=== PATIENT | female | born 1995 | race Caucasian/White ===

== ENCOUNTER 2017-11-19 13:59 | Emergency (ER) | payer MEDICAID, SELFPAY | END 2017-11-19 14:34 | disposition home or self-care (01) | PROVIDERS: Emergency Provider Emergency Medicine; Family Provider Nurse Practitioner Family; Visit Provider Emergency Medicine | DX: J06.9 Acute upper respiratory infection, unspecified (principal); O21.1 Hyperemesis gravidarum with metabolic disturbance | CPT/HCPCS: 99283 ==

== ENCOUNTER 2017-11-19 21:24 | Emergency (ER) | payer MEDICAID, SELFPAY | END 2017-11-19 23:37 | disposition home or self-care (01) | PROVIDERS: Emergency Provider Emergency Medicine; Family Provider Nurse Practitioner Family; Visit Provider Emergency Medicine | DX: J06.9 Acute upper respiratory infection, unspecified (principal); O23.11 Infections of bladder in pregnancy, first trimester; R07.89 Other chest pain | CPT/HCPCS: 80053; 81001; 83605; 85025; 87040; 87086; 87275; 87276; 96365; 99284 ==

== ENCOUNTER → 2017-11-23 | Outpatient (CLI) | payer MEDICAID, SELFPAY | PROVIDERS: Visit Provider Nurse Practitioner Obstetrics & Gynecology | DX: O26.841 Uterine size-date discrepancy, first trimester (principal) | CPT/HCPCS: 76817 ==

== ENCOUNTER 2017-11-26 12:22 | Emergency (ER) | payer MEDICAID, SELFPAY | END 2017-11-26 13:31 | disposition home or self-care (01) | PROVIDERS: Emergency Provider Nurse Practitioner; Visit Provider Nurse Practitioner | DX: K52.9 Noninfective gastroenteritis and colitis, unspecified (principal) | CPT/HCPCS: 87804; 87880; 96365; 99201 ==

== ENCOUNTER → 2017-12-14 17:50 | Outpatient (REF) | payer MEDICAID, SELFPAY ==
[2017-12-16 20:10] LABS: Neisseria gonorrhoeae, NAA Negative (Negative)
== END ==
LOC: LAB 17:50
PROVIDERS: Visit Provider Nurse Practitioner Obstetrics & Gynecology

== ENCOUNTER 2017-12-26 08:55 | Emergency (ER) | payer MEDICAID, SELFPAY ==
[2017-12-26 09:02] VITALS: BP 135/75; PULSE 84; RESP 18; TEMP 36.6; O2SAT 99; BMI 21.1
[2017-12-26 09:24] LABS: Microscopic, Urine URINE MICROSCOPIC (MICROSCOPIC)
[2017-12-26 09:26] LABS: Appearance,Urine SL CLOUDY (Clear); Bilirubin,Urine Negative (Negative); Blood, Urine TRACE-L (Negative); Color,Urine YELLOW (Yellow); Glucose,Urine (UA) Negative (Negative); Ketones,Urine Negative (Negative); Leukocyte Esterase,Urine Negative (Negative); Nitrate,Urine Negative (Negative); Protein,Urine Negative (Negative); Specific Gravity, Urine >= 1.030 (1.005-1.030); Urobilinogen,Urine 0.2 EU/dl (0.2)
--- NOTE | 2017-12-26 09:28 | PC.NURSE ---
HEART TONES 148BPM AT 0925.
[2017-12-26 09:36] LABS: Bacteria,Urine 3+ /lpf; Mucus,Urine 2+ /lpf; RBC,Urine Occasional #/hpf (0-3); Squamous Epithelial Cell,Urine 20-50 #/hpf (0-5)
--- NOTE | 2017-12-26 09:46 | HMH.EDUROGF ---
ED Disposition Clinical Impression: UTI (urinary tract infection) Qualifiers: Urinary tract infection type: acute cystitis Hematuria presence: without hematuria Qualified Code(s): N30.00 - Acute cystitis without hematuria Qualifiers: Weeks of gestation: 13 weeks Qualified Code(s): Z3A.13 - 13 weeks gestation of Disposition: Home, Self-Care Condition on Discharge: Good Instructions: DI for Urinary Tract Infection (UTI) Additional Instructions: call dr pompa for follow up and culture results Prescriptions: Nitrofurantoin Monohyd/M-Cryst [Macrobid 100 mg Capsule] 100 mg PO BID #10 cap Phenazopyridine HCl [Pyridium 200mg Tablet] 200 mg PO TID #14 tab Referrals: Vashti Walton APRN [Primary Care Provider] - - Critical Care Critical Care Time: No Attestation: On 12/26/17, the high probability of a clinically significant, sudden or life threatening deterioration of the following system(s) required my full and direct attention, intervention and personal management. The time I documented below is in addition to time spent performing reported procedures but includes the following listed in this critical care notation. Medical Decision Making - Medical Records Medical records reviewed: Yes: I reviewed the patient's medical records. Vital Signs: 12/26/17 09:02 Temperature 97.8 F Temperature Source Oral Pulse Rate [Right Brachial] 84 Respiratory Rate 18 Blood Pressure [Right Arm] 135/75 Blood Pressure Mean [Right Arm] 95 Blood Pressure Source [Right Arm] Automatic Cuff Blood Pressure Position [Right Arm] Sitting 02 Sat by Pulse Oximetry 99 Oxygen Delivery Method Room Air - Lab Data Lab results reviewed: Yes: I reviewed the patient's lab results. Lab Results 12/26/17 09:01: Urine Color Yellow, Urine Appearance Sl cloudy, Urine pH 6.0, Ur Specific [place] >= 1.030, Urine Protein Negative, Urine Glucose (UA) Negative, Urine Ketones Negative, Urine Blood Trace-l, Urine Nitrate Negative, Urine Bilirubin Negative, Urine Urobilinogen 0.2, Ur Leukocyte Esterase Negative, Urine RBC Occasional, Urine WBC 3-5, Ur Squamous Epith Cells 20-50, Urine Bacteria 3+, Urine Mucus 2+ Orders (Tests/Meds): ORDERS Category Date Time Status Urine Culture Stat Micro 12/26/17 09:01 Received - Physician Consults Physician Consulted: aletha Reason -: Pt condition - Kai Inquiry Pt receiving controlled substance: No Female Urogenital HPI - General Chief complaint: Back Pain/Injury Stated complaint: 13 weeks pressure back pa Time Seen by Provider: 12/26/17 09:46 Mode of Arrival: Family Vehicle Source of Information: Patient, Medical Record Limitations: No Limitations Description of Symptoms (Recalled from ER Triage Doc. by RN): PT C/O LOWER PELVIC PRESSURE AND BACK PRESSURE THAT STARTED LAST NIGHT. PT IS 13 WEEKS . - History of Present Illness HPI Narrative: pt is 13 weeks with back pain and pelvic pain w/o fever/rash/d/c or bleeding Complaint: pelvic pain Onset (ago): day(s) Severity: moderate : yes - Related Data Home Medications Medication Instructions Recorded Confirmed Pnv95/Iron Fum/Folic Acid 1 each PO DAILY 12/26/17 12/26/17 [ Formula Tablet] Previous Rx's Medication Instructions Recorded Nitrofurantoin Monohyd/M-Cryst 100 mg PO BID #10 cap 12/26/17 [Macrobid 100 mg Capsule] Phenazopyridine HCl [Pyridium 200 mg PO TID #14 tab 12/26/17 200mg Tablet] Allergies Allergy/AdvReac Type Severity Reaction Status Date / Time No Known Allergies Allergy Verified 12/26/17 09:08 [facility] History I have reviewed the patient's past medical history: Yes - *Social History Smoking Status: Never smoker Alcohol Intake: never Substance Use Type: denies use - Psychiatric History Expresses thoughts of harming self/others: None Suicide Plan Description: No Plan ROS Obtained: Yes All systems reviewed
--- NOTE | 2017-12-26 09:49 | ED_ITS ---
ED Disposition Clinical Impression: UTI (urinary tract infection) Qualifiers: Urinary tract infection type: acute cystitis Hematuria presence: without hematuria Qualified Code(s): N30.00 - Acute cystitis without hematuria Qualifiers: Weeks of gestation: 13 weeks Qualified Code(s): Z3A.13 - 13 weeks gestation of Disposition: Home, Self-Care Condition on Discharge: Good Instructions: DI for Urinary Tract Infection (UTI) Additional Instructions: call dr pompa for follow up and culture results Prescriptions: Nitrofurantoin Monohyd/M-Cryst [Macrobid 100 mg Capsule] 100 mg PO BID #10 cap Phenazopyridine HCl [Pyridium 200mg Tablet] 200 mg PO TID #14 tab Referrals: Vashti Walton APRN [Primary Care Provider] - - Critical Care Critical Care Time: No Attestation: On 12/26/17, the high probability of a clinically significant, sudden or life threatening deterioration of the following system(s) required my full and direct attention, intervention and personal management. The time I documented below is in addition to time spent performing reported procedures but includes the following listed in this critical care notation. Medical Decision Making - Medical Records Medical records reviewed: Yes: I reviewed the patient's medical records. Vital Signs: 12/26/17 09:02 Temperature 97.8 F Temperature Source Oral Pulse Rate [Right Brachial] 84 Respiratory Rate 18 Blood Pressure [Right Arm] 135/75 Blood Pressure Mean [Right Arm] 95 Blood Pressure Source [Right Arm] Automatic Cuff Blood Pressure Position [Right Arm] Sitting 02 Sat by Pulse Oximetry 99 Oxygen Delivery Method Room Air - Lab Data Lab results reviewed: Yes: I reviewed the patient's lab results. Lab Results 12/26/17 09:01: Urine Color Yellow, Urine Appearance Sl cloudy, Urine pH 6.0, Ur Specific [place] >= 1.030, Urine Protein Negative, Urine Glucose (UA) Negative, Urine Ketones Negative, Urine Blood Trace-l, Urine Nitrate Negative, Urine Bilirubin Negative, Urine Urobilinogen 0.2, Ur Leukocyte Esterase Negative , Urine RBC Occasional, Urine WBC 3-5, Ur Squamous Epith Cells 20-50, Urine Bacteria 3+, Urine Mucus 2+ Orders (Tests/Meds): ORDERS Category Date Time Status Urine Culture Stat Micro 12/26/17 09:01 Received - Physician Consults Physician Consulted: aletha Reason -: Pt condition - Kai Inquiry Pt receiving controlled substance: No Female Urogenital HPI - General Chief complaint: Back Pain/Injury Stated complaint: 13 weeks pressure back pa Time Seen by Provider: 12/26/17 09:46 Mode of Arrival: Family Vehicle Source of Information: Patient, Medical Record Limitations: No Limitations Description of Symptoms (Recalled from ER Triage Doc. by RN): PT C/O LOWER PELVIC PRESSURE AND BACK PRESSURE THAT STARTED LAST NIGHT. PT IS 13 WEEKS . - History of Present Illness HPI Narrative: pt is 13 weeks with back pain and pelvic pain w/o fever/rash/d/c or bleeding Complaint: pelvic pain Onset (ago): day(s) Severity: moderate : yes - Related Data Home Medications Medication Instructions Recorded Confirmed Pnv95/Iron Fum/Folic Acid 1 each PO DAILY 12/26/17 12/26/17 [ Formula Tablet] Previous Rx's Medication Instructions Recorded
--- NOTE | 2017-12-26 09:49 | PC.NURSE ---
0949- ON PHONE WITH .
[2017-12-26 10:08] VITALS: BP 132/68; PULSE 77; RESP 18; O2SAT 100
== END 2017-12-26 10:10 | disposition home or self-care (01) ==
PROVIDERS: Emergency Provider Emergency Medicine; Family Provider Nurse Practitioner Family; PCP Nurse Practitioner Family
DX: O23.11 Infections of bladder in pregnancy, first trimester (principal); Z3A.13 13 weeks gestation of pregnancy
CPT/HCPCS: 81001; 87086; 99283

== ENCOUNTER 2018-02-10 08:39 | Emergency (ER) | payer MEDICAID, SELFPAY ==
[2018-02-10 08:41] VITALS: BP 124/76; PULSE 75; RESP 18; TEMP 36.4; O2SAT 99; BMI 21.7
[2018-02-10 08:59] LABS: Microscopic, Urine URINE MICROSCOPIC (MICROSCOPIC)
[2018-02-10 09:08] LABS: Appearance,Urine CLEAR (Clear); Bilirubin,Urine Negative (Negative); Blood, Urine TRACE-L (Negative); Color,Urine YELLOW (Yellow); Glucose,Urine (UA) Negative (Negative); Ketones,Urine Negative (Negative); Leukocyte Esterase,Urine Negative (Negative); Nitrate,Urine Negative (Negative); PH,Urine 6.5 (5.0-8.5); Protein,Urine Negative (Negative); Urobilinogen,Urine 0.2 EU/dl (0.2)
--- NOTE | 2018-02-10 09:19 | HMH.EDGENADL ---
ED Disposition Clinical Impression: Round ligament pain Disposition: Home, Self-Care Condition on Discharge: Good Instructions: How to Measure Pain-Adult Referrals: Kleber Boyer MD [Primary Care Provider] - Time of Disposition: 12:27 (discussed with Dr Rojas and discussed US results, feels likely round ligament) - Critical Care Critical Care Time: No Attestation: On 02/10/18, the high probability of a clinically significant, sudden or life threatening deterioration of the following system(s) required my full and direct attention, intervention and personal management. The time I documented below is in addition to time spent performing reported procedures but includes the following listed in this critical care notation. Medical Decision Making - Medical Records Medical records reviewed: Yes: I reviewed the patient's medical records. - Kai Inquiry Pt receiving controlled substance: No Kai was queried for this patient: No Vital Signs: 02/10/18 08:41 Temperature 97.5 F L Temperature Source Oral Pulse Rate [Right Brachial] 75 Respiratory Rate 18 Blood Pressure [Right Arm] 124/76 Blood Pressure Mean [Right Arm] 92 Blood Pressure Source [Right Arm] Automatic Cuff Blood Pressure Position [Right Arm] Sitting 02 Sat by Pulse Oximetry 99 Oxygen Delivery Method Room Air - Lab Data Lab results reviewed: Yes: I reviewed the patient's lab results. Lab Results 02/10/18 08:50: Urine Color Yellow, Urine Appearance Clear, Urine pH 6.5, Ur Specific [place] 1.020, Urine Protein Negative, Urine Glucose (UA) Negative, Urine Ketones Negative, Urine Blood Trace-l, Urine Nitrate Negative, Urine Bilirubin Negative, Urine Urobilinogen 0.2, Ur Leukocyte Esterase Negative, Urine RBC 3-5, Urine WBC 5-10, Ur Squamous Epith Cells 5-10, Urine Bacteria 1+ - US Data US Images: Abdomen ED US Reviewed: Yes: I discussed the US results w/the radiologist Preliminary Findings: Normal/NAD (mild hydronephrosis) General Adult HPI - General Chief complaint: PAIN Stated complaint: approx 19 weeks abd pain Time Seen by Provider: 02/10/18 08:50 Mode of Arrival: Ambulatory (6) Limitations: No Limitations Description of Symptoms (Recalled from ER Triage Doc. by RN): 19 weeks . presents to ed with c/o lower abdominal pain since 0330 but mostly on left side with some back pain. hx left ovarian cyst. Denies urinary problems or vaginal bleeding/discharge - History of Present Illness Onset (ago): hour(s) (6) Location: abdomen Radiation: non-radiation Severity: moderate Quality: aching Consistency: intermittent Relieving factors: immobilization Exacerbating factors: movement Associated symptoms: denies other symptoms - Related Data Home Medications Medication Instructions Recorded Confirmed Pnv95/Iron Fum/Folic Acid 1 each PO DAILY 12/26/17 02/10/18 [ Formula Tablet] Allergies Allergy/AdvReac Type Severity Reaction Status Date / Time No Known Allergies Allergy Verified 01/18/18 15:44 [facility] History I have reviewed the patient's past medical history: Yes Medical History: Denies:: Cancer, Diabetes Mellitus Type 1, Diabetes Mellitus Type 2, MRSA Amputation: No Fractures: No - Social History Educational Level: Completed High School Smoking Status: Never smoker Alcohol Intake: never Substance Use Type: denies use - Psychiatric History Expresses thoughts of harming self/others: None Suicide Plan Description: No Plan Family Hx:: No significant family history ROS Obtained: Yes All systems reviewed & no additional complaints - Genitourinary Male Genitourinary: Reports other (lower pelvic pain pog1 l greater than right) Female Genitourinary: Reports pelvic pain (left side pelvic pain) Physical Exam - General General appearance: alert, in no apparent distress - Head Head exam: atraumatic, normocephalic - Eye Eye exam: Present: normal appearance, PERRL, EOMI - ENT ENT e
--- NOTE | 2018-02-10 09:20 | US_ITS ---
US OB >= 14 weeks Fetus COMPARISON: Transvaginal ultrasound of 11/23/2017 HISTORY: Left lower quadrant pain, no spotting TECHNIQUE: Transabdominal imaging FINDINGS: The cervix is 4.0 cm in length and closed. The fetus is in breech presentation. The heart rate is 1 30 bpm. The placenta is anterior. There is a normal amount of amnionic fluid. The BPD is 4.47 cm equaling 19 weeks and 4 days and occipital frontal diameter is 5.83 cm equaling 20 weeks 1 day. The head circumference is 16.32 cm equaling 19 weeks 1 day and the abdominal circumference is 14.2 cm equaling 19 weeks 4 days. The femur length is 3.04 centers equaling 19 weeks 3 days. Both ovaries appear normal. There is mild hydronephrotic change left kidney with moderate hydronephrotic change right kidney. IMPRESSION: Breach fetus estimated age 19 weeks and 3 days
--- NOTE | 2018-02-10 09:23 | ED_ITS ---
ED Disposition Clinical Impression: Round ligament pain Disposition: Home, Self-Care Condition on Discharge: Good Instructions: How to Measure Pain-Adult Referrals: Kleber Boyer MD [Primary Care Provider] - Time of Disposition: 12:27 (discussed with Dr oRjas and discussed US results, feels likely round ligament) - Critical Care Critical Care Time: No Attestation: On 02/10/18, the high probability of a clinically significant, sudden or life threatening deterioration of the following system(s) required my full and direct attention, intervention and personal management. The time I documented below is in addition to time spent performing reported procedures but includes the following listed in this critical care notation. Medical Decision Making - Medical Records Medical records reviewed: Yes: I reviewed the patient's medical records. - Kai Inquiry Pt receiving controlled substance: No Kai was queried for this patient: No Vital Signs: 02/10/18 08:41 Temperature 97.5 F L Temperature Source Oral Pulse Rate [Right Brachial] 75 Respiratory Rate 18 Blood Pressure [Right Arm] 124/76 Blood Pressure Mean [Right Arm] 92 Blood Pressure Source [Right Arm] Automatic Cuff Blood Pressure Position [Right Arm] Sitting 02 Sat by Pulse Oximetry 99 Oxygen Delivery Method Room Air - Lab Data Lab results reviewed: Yes: I reviewed the patient's lab results. Lab Results 02/10/18 08:50: Urine Color Yellow, Urine Appearance Clear, Urine pH 6.5, Ur Specific [place] 1.020, Urine Protein Negative, Urine Glucose (UA) Negative, Urine Ketones Negative, Urine Blood Trace-l, Urine Nitrate Negative, Urine Bilirubin Negative, Urine Urobilinogen 0.2, Ur Leukocyte Esterase Negative, Urine RBC 3-5, Urine WBC 5-10, Ur Squamous Epith Cells 5-10, Urine Bacteria 1+ - US Data US Images: Abdomen ED US Reviewed: Yes: I discussed the US results w/the radiologist Preliminary Findings: Normal/NAD (mild hydronephrosis) General Adult HPI - General Chief complaint: PAIN Stated complaint: approx 19 weeks abd pain Time Seen by Provider: 02/10/18 08:50 Mode of Arrival: Ambulatory (6) Limitations: No Limitations Description of Symptoms (Recalled from ER Triage Doc. by RN): 19 weeks . presents to ed with c/o lower abdominal pain since 0330 but mostly on left side with some back pain. hx left ovarian cyst. Denies urinary problems or vaginal bleeding/discharge - History of Present Illness Onset (ago): hour(s) (6) Location: abdomen Radiation: non-radiation Severity: moderate Quality: aching Consistency: intermittent Relieving factors: immobilization Exacerbating factors: movement Associated symptoms: denies other symptoms - Related Data Home Medications Medication Instructions Recorded Confirmed Pnv95/Iron Fum/Folic Acid 1 each PO DAILY 12/26/17 02/10/18 [ Formula Tablet] Allergies Allergy/AdvReac Type Severity Reaction Status Date / Time No Known Allergies Allergy Verified 01/18/18 15:44 [facility] History I have reviewed the patient's past medical history: Yes Medical History: Denies:: Cancer, Diabetes Mellitus Type 1, Diabetes Mellitus Type 2, MRSA Amputation: No Fractures: No - Social History Educational Level: Completed High School Smoking Status: Never smoker Alcohol Intake: never Substanc
[2018-02-10 09:30] LABS: Bacteria,Urine 1+ /lpf
--- NOTE | 2018-02-10 09:42 | PC.NURSE ---
HEART TONES 155
--- NOTE | 2018-02-10 11:56 | PC.NURSE ---
attempted to call dr henley office at this time. no answer. will try again later.
[2018-02-10 12:45] VITALS: BP 114/61; PULSE 76; RESP 16; TEMP 36.6; O2SAT 100
== END 2018-02-10 12:49 | disposition home or self-care (01) ==
PROVIDERS: Emergency Provider Family Medicine; Family Provider Nurse Practitioner Family; PCP Nurse Practitioner Obstetrics & Gynecology
DX: R10.2 Pelvic and perineal pain (principal); O26.892 Other specified pregnancy related conditions, second trimester; Z3A.19 19 weeks gestation of pregnancy
CPT/HCPCS: 76805; 81001; 99282

== ENCOUNTER → 2018-02-15 14:31 | Outpatient (CLI) | payer MEDICAID, SELFPAY ==
--- NOTE | 2018-02-15 14:47 | US_ITS ---
US OB /maternal detail: INDICATION: ITS.REASON: 20 wk+ Anatomy Scan Complete ORDERING PHYSICIAN: Kleber Boyer MD PATIENT AGE: 22 years TECHNIQUE: ultrasound transabdominal scanning. COMPARISON: No previous relevant studies. FINDINGS: Single viable intrauterine gestation. breech position. Placenta: anterior placenta grade 1. There is adequate amount fluid. The cervix appears satisfactory. Closed and measuring 4 cm in length. Complete survey performed and was unremarkable on the submitted images as in PACS. No discrete anomalies identified on survey imaging by technologist. Active fetus. Three-vessel cord with satisfactory umbilical cord insertion. 4- chamber heart noted. Survey of brain & ventricles. Face and neck survey unremarkable. Diaphragm and chest views unremarkable. Abdomen: Both kidneys noted and unremarkable. Stomach noted and satisfactory. Spine: Survey of the spine satisfactory with no anomalies identified nor imaged. Both arms and legs noted. Amniotic Fluid: Adequate. Maternal adnexa: No significant findings. Measurements: Average ultrasound age 20w3d. Gestational Age 20w2d. Estimated due date by ultrasound age 0807/02/2018. Estimated weight 351 grams. This is 52nd percentile based on last menstrual period BPD = 21w0d OFD = 20w1d HC = 19w5d AC = 20w5d FL = 20w2d Heart Rate = 133 Cerebellum = 22w1d Humerus = 21w6d HC/AC is 1.10 (1.09-1.26). CI is 84% (70-86%). FL/BPD is 66%. FL/AC is 21%. IMPRESSION: There is a single live fetus which is in breech presentation with average ultrasound age of 20 weeks and 3 days. Fetus is active with no obvious anomalies. The placenta is anterior with no evidence of previa. Please see above for detail
== END ==
PROVIDERS: Family Provider Nurse Practitioner Family; PCP Nurse Practitioner Obstetrics & Gynecology; Visit Provider Nurse Practitioner Obstetrics & Gynecology
DX: Z36.0 Encounter for antenatal screening for chromosomal anomalies (principal)
CPT/HCPCS: 76811

== ENCOUNTER 2018-03-31 08:30 | Outpatient (CLI) | payer MEDICAID, SELFPAY ==
[2018-03-31 10:10] VITALS: BP 124/75; PULSE 77; RESP 18
== END 2018-03-31 10:25 | disposition home or self-care (01) ==
LOC: LAB 08:30
PROVIDERS: Visit Provider Nurse Practitioner Obstetrics & Gynecology
DX: Z34.90 Encounter for supervision of normal pregnancy, unspecified, unspecified trimester (principal)
CPT/HCPCS: 36415; 96372; J2790

== ENCOUNTER 2018-04-25 17:19 | Outpatient (CLI) | payer MEDICAID, SELFPAY ==
[2018-04-25 17:34] VITALS: BMI 22.7
[2018-04-25 17:45] VITALS: BP 147/85; PULSE 90; RESP 18; TEMP 36.5; O2SAT 99; BMI 23.3
[2018-04-25 17:53] LABS: Microscopic, Urine URINE MICROSCOPIC (MICROSCOPIC)
[2018-04-25 17:54] LABS: Appearance,Urine SL CLOUDY (Clear); Bilirubin,Urine Negative (Negative); Blood, Urine TRACE-L (Negative); Color,Urine YELLOW (Yellow); Glucose,Urine (UA) Negative (Negative); Ketones,Urine Negative (Negative); Leukocyte Esterase,Urine 2+ (Negative); Nitrate,Urine Negative (Negative); PH,Urine 6.5 (5.0-8.5); Protein,Urine Negative (Negative); Specific Gravity, Urine 1.015 (1.005-1.030); Urobilinogen,Urine 0.2 EU/dl (0.2)
[2018-04-25 18:18] LABS: Amorphous Sediment,Urine 2+ /lpf; Bacteria,Urine 2+ /lpf; RBC,Urine Occasional #/hpf (0-3); Squamous Epithelial Cell,Urine TNTC #/hpf (0-5)
== END 2018-04-25 19:16 | disposition home or self-care (01) ==
LOC: OBOUT 17:23 → OB 17:24
PROVIDERS: PCP Nurse Practitioner Obstetrics & Gynecology; Visit Provider Obstetrics & Gynecology
DX: O47.03 False labor before 37 completed weeks of gestation, third trimester (principal); Z3A.30 30 weeks gestation of pregnancy
CPT/HCPCS: 59025; 81001; 87086

== ENCOUNTER 2018-04-27 16:36 | Outpatient (CLI) | payer MEDICAID, SELFPAY ==
[2018-04-27 16:54] VITALS: BMI 23.1
[2018-04-27 16:55] VITALS: BP 141/81; PULSE 89; RESP 18; TEMP 37; O2SAT 99; BMI 23.1
[2018-04-27 17:19] LABS: Microscopic, Urine URINE MICROSCOPIC (MICROSCOPIC)
[2018-04-27 17:20] LABS: Appearance,Urine CLEAR (Clear); Bilirubin,Urine Negative (Negative); Blood, Urine Negative (Negative); Color,Urine YELLOW (Yellow); Glucose,Urine (UA) Negative (Negative); Ketones,Urine Negative (Negative); Leukocyte Esterase,Urine TRACE (Negative); Nitrate,Urine Negative (Negative); Protein,Urine Negative (Negative); Specific Gravity, Urine 1.015 (1.005-1.030); Urobilinogen,Urine 0.2 EU/dl (0.2)
[2018-04-27 17:32] LABS: Bacteria,Urine 1+ /lpf
== END 2018-04-27 18:24 | disposition home or self-care (01) ==
LOC: OBOUT 16:39 → OB 16:40
PROVIDERS: Obstetrics & Gynecology; PCP Nurse Practitioner Obstetrics & Gynecology; Visit Provider Obstetrics & Gynecology
DX: O26.93 Pregnancy related conditions, unspecified, third trimester (principal); Z3A.30 30 weeks gestation of pregnancy; R10.9 Unspecified abdominal pain; M54.5 Low back pain
CPT/HCPCS: 59025; 81001

== ENCOUNTER 2018-05-09 16:52 | Outpatient (CLI) | payer MEDICAID, SELFPAY ==
[2018-05-09 17:02] VITALS: BP 123/70; PULSE 64; RESP 18; TEMP 36.8; O2SAT 100; BMI 22.8
== END 2018-05-09 17:18 | disposition home or self-care (01) ==
LOC: OBOUT 16:54 → OB 16:54
PROVIDERS: PCP Nurse Practitioner Obstetrics & Gynecology; Visit Provider Nurse Practitioner Obstetrics & Gynecology
DX: O26.93 Pregnancy related conditions, unspecified, third trimester (principal); Z3A.32 32 weeks gestation of pregnancy
CPT/HCPCS: 96372

== ENCOUNTER 2018-05-10 16:31 | Outpatient (CLI) | payer MEDICAID, SELFPAY ==
[2018-05-10 16:44] VITALS: BP 141/94; PULSE 88; RESP 20; TEMP 36.8; O2SAT 99; BMI 22.8
== END 2018-05-10 17:07 | disposition home or self-care (01) ==
LOC: OBOUT 16:33 → OB 16:33
PROVIDERS: PCP Nurse Practitioner Family; Visit Provider Nurse Practitioner Obstetrics & Gynecology
DX: O26.93 Pregnancy related conditions, unspecified, third trimester (principal); Z3A.32 32 weeks gestation of pregnancy
CPT/HCPCS: 96372

== ENCOUNTER → 2018-05-17 08:20 | Outpatient (CLI) | payer MEDICAID, SELFPAY ==
--- NOTE | 2018-05-17 08:23 | US_ITS ---
US OB biophysical profile, US SD Ratio umbilcal artery: Indication: Small for gestational age ITS.REASON: US OB- SGA ORDERING PHYSICIAN: Kleber Boyer MD PATIENT AGE: 22 years COMPARISON: 02/15/2018 FINDINGS: There is a single live fetus present in cephalic presentation. heart and breathing motion noted. movement present The following parameters are obtained: Average ultrasound age is 33w6d. Estimated due date by ultrasound is 06/29/2018. Estimated weight is 2188 g. This is 45 percentile based on established due date. BPD: 33w5d OFD: 35w0d HC: 34w0d AC: 32w4d FL: 34w5d heart rate: 140 bpm. HC/AC: 1.07 (0.96-1.11) Cephalic index: 77% (70-86%) FL/BPD: 80% (71-87%) FL/AC: 24% (20-24%) Amniotic fluid index: 11.56 cm Qualitative AFV: 2 breathing movements: 2 Gross body movements: Note Tone: 2 Biophysical profile score: 8/8 Doppler evaluation of the umbilical artery: SD ratio: 2.6 Resistive index: 0.61 No obvious anomalies evident. Placenta: Anterior and grade 2. No previa Cervix: Appears closed and measures Measurement IMPRESSION: There is a single live intrauterine gestation which is in cephalic presentation. Average ultrasound age is 33 weeks and 6 days. Estimated due date by ultrasound is 06/29/2018. Estimated weight is 2188 g which is 45 percentile based on established due date of 07/03/2018. Biophysical profile 8 of 8 with amniotic fluid index of 12 cm and unremarkable Doppler evaluation of the umbilical artery
== END ==
PROVIDERS: Family Provider Nurse Practitioner Family; PCP Nurse Practitioner Family; Visit Provider Nurse Practitioner Obstetrics & Gynecology
DX: Z34.90 Encounter for supervision of normal pregnancy, unspecified, unspecified trimester (principal); O36.5131 Maternal care for known or suspected placental insufficiency, third trimester, fetus 1
CPT/HCPCS: 76819; 76820

== ENCOUNTER 2018-05-18 06:44 | Outpatient (CLI) | payer MEDICAID, SELFPAY ==
[2018-05-18 07:02] VITALS: BMI 23.0
[2018-05-18 07:23] VITALS: BP 134/73; PULSE 93; RESP 16; TEMP 36.7; O2SAT 98; BMI 23.0
[2018-05-18 07:28] LABS: Microscopic, Urine URINE MICROSCOPIC (MICROSCOPIC)
[2018-05-18 07:40] LABS: Appearance,Urine CLOUDY (Clear); Bilirubin,Urine Negative (Negative); Blood, Urine 3+ (Negative); Color,Urine AMBER (Yellow); Glucose,Urine (UA) Negative (Negative); Ketones,Urine Negative (Negative); Leukocyte Esterase,Urine Negative (Negative); Nitrate,Urine Negative (Negative); Protein,Urine 1+ (Negative); Specific Gravity, Urine 1.015 (1.005-1.030); Urobilinogen,Urine 0.2 EU/dl (0.2)
[2018-05-18 07:52] LABS: Bacteria,Urine 1+ /lpf; RBC,Urine TNTC #/hpf (0-3); Squamous Epithelial Cell,Urine Occasional #/hpf (0-5); WBC,Urine Occasional #/hpf (0-3)
[2018-05-18 07:55] LABS: Fetal Membrane Rupture (Rapid) Negative (Negative)
[2018-05-18 07:59] LABS: Fetal Fibronectin (Rapid) Negative (Negative)
--- NOTE | 2018-05-18 08:34 | HMH.ACPN2 ---
Internal Medicine - PN: Subj *Date: 05/18/18 *Time: 08:34 Interval history: She is a 22-year-old 1 para 0 at 30 weeks gestational. Age. She complains of low back pain as well as occasional contraction. As result that she came in for monitoring. Exam Vital signs and Labs for Last 24 Hours: Temp Pulse Resp BP Pulse Ox 98.0 F 93 H 16 134/73 98 05/18/18 07:23 05/18/18 07:23 05/18/18 07:23 05/18/18 07:23 05/18/18 07:23 Laboratory Results - last 24 hr 05/18/18 06:58: Urine Color Alicia, Urine Appearance Cloudy, Urine pH 7.0, Ur Specific [place] 1.015, Urine Protein 1+, Urine Glucose (UA) Negative, Urine Ketones Negative, Urine Blood 3+, Urine Nitrate Negative, Urine Bilirubin Negative, Urine Urobilinogen 0.2, Ur Leukocyte Esterase Negative, Urine RBC Tntc, Urine WBC Occasional, Ur Squamous Epith Cells Occasional, Urine Bacteria 1+ 05/18/18 07:15: Membrane Rupture Negative, Fibronectin Negative I & O for Last 24 hours: Intake & Output 05/15/18 05/16/18 05/17/18 05/18/18 11:59 11:59 11:59 11:59 Weight 147 lb - Constitutional no acute distress Assessment and Plan (1) Low back pain during in third trimester Current visit: Yes Status: Acute Category: Medical Code(s): O26.893 - Other specified related conditions, third trimester; M54.5 - Low back pain (2) labor in third trimester without delivery Current visit: No Status: Acute Category: Medical Code(s): O60.03 - labor without delivery, third trimester - Assessment and plan all Dx Assessment and Plan for all problems:: She is having an occasional contraction but her cervix has not changed. Her cervix remains 1 cm thick and the presented part is high. Nonstress test is reactive. She has an occasional contraction is mild. She complains of low back pain. We have given her a shot of Brethine and will give her a liter of fluid. She may benefit from physical therapy for her back. She has an appointment with me this morning at 9:00 but we will reschedule that for next week. He will be discharged home.
[2018-05-18 10:15] VITALS: BP 130/68; PULSE 107; RESP 18; O2SAT 100
== END 2018-05-18 10:30 | disposition home or self-care (01) ==
LOC: OBOUT 06:45 → OB 06:45
PROVIDERS: PCP Nurse Practitioner Family; Visit Provider Nurse Practitioner Obstetrics & Gynecology
DX: O26.893 Other specified pregnancy related conditions, third trimester (principal); Z3A.33 33 weeks gestation of pregnancy; R10.2 Pelvic and perineal pain; M54.5 Low back pain
CPT/HCPCS: 59025; 81001; 82731; 84112; 96360; 96372

== ENCOUNTER 2018-05-18 16:33 | Outpatient (CLI) | payer MEDICAID, SELFPAY ==
[2018-05-18 16:48] VITALS: BP 153/93; PULSE 95; RESP 18; TEMP 36.8; O2SAT 100; BMI 23.6
[2018-05-18 18:17] LABS: Basophils % 0.3 % (0.1-2.0); Eosinophils # 0.1 K/mm3 (0.0-0.4); Eosinophils % 0.4 % (0.1-12.0); Hematocrit 33.8 % (37.0-47.0); Hemoglobin 11.1 g/dL (12.2-16.2); Lymphocytes # 1.9 K/mm3 (0.7-4.5); Lymphocytes % 14.8 K/mm3 (10-50); Mean Corpuscular HGB Conc 32.7 g/dL (31.8-35.4); Mean Corpuscular Hemoglobin 28.3 pg (27.0-31.2); Mean Corpuscular Volume 86.5 fl (81-99); Mean Platelet Volume 7.7 fl (7.4-10.4); Monocytes # 0.4 K/mm3 (0.1-1.0); Monocytes % 3.4 % (1.7-9.3); Neutrophils # 10.2 K/mm3 (1.8-7.8); Neutrophils % 81.1 % (37.0-80.0); Platelet Count 222 K/mm3 (142-424); Red Cell Distribution Width 13.6 % (11.5-17.5); White Blood Count 12.6 K/mm3 (4.5-13.0)
[2018-05-18 18:20] LABS: Anion Gap 12.3 mEq/L (5-15); Blood Urea Nitrogen 7 mg/dL (7-18); Calcium 8.8 mg/dL (8.5-10.1); Carbon Dioxide 23 mmol/L (21.0-32.0); Chloride 104 mmol/L (98-107); Creatinine Clearance Estimated 171 mL/min (0-300); Creatinine,Serum 0.55 mg/dL (0.55-1.02); Estimated Glomerular Filt Rate 141 ml/min (>60); GFR (African American) 171 ML/MIN (>60); Glucose 100 mg/dL (74-106); Potassium 3.3 mmoL/L (3.5-5.1); Sodium 136 mmol/L (136-145)
[2018-05-18 19:32] LABS: Microscopic, Urine URINE MICROSCOPIC (MICROSCOPIC)
[2018-05-18 19:34] LABS: Appearance,Urine CLEAR (Clear); Bilirubin,Urine Negative (Negative); Blood, Urine 3+ (Negative); Color,Urine YELLOW (Yellow); Glucose,Urine (UA) Negative (Negative); Ketones,Urine Negative (Negative); Leukocyte Esterase,Urine Negative (Negative); Nitrate,Urine Negative (Negative); Protein,Urine Negative (Negative); Specific Gravity, Urine 1.015 (1.005-1.030); Urobilinogen,Urine 0.2 EU/dl (0.2)
[2018-05-18 19:55] LABS: Bacteria,Urine 1+ /lpf; RBC,Urine 20-50 #/hpf (0-3)
== END 2018-05-18 20:55 | disposition home or self-care (01) ==
LOC: OBOUT 16:35 → OB 16:36
PROVIDERS: PCP Nurse Practitioner Obstetrics & Gynecology; Visit Provider Obstetrics & Gynecology
DX: O26.93 Pregnancy related conditions, unspecified, third trimester (principal); Z3A.33 33 weeks gestation of pregnancy; R10.30 Lower abdominal pain, unspecified
CPT/HCPCS: 59025; 80048; 81001; 85025; 96360

== ENCOUNTER 2018-05-21 05:54 | Outpatient (CLI) | payer MEDICAID, SELFPAY ==
[2018-05-21 06:05] VITALS: BMI 23.3
[2018-05-21 06:15] VITALS: BP 146/86; PULSE 115; RESP 18; TEMP 37.2; O2SAT 98; BMI 23.5
[2018-05-21 06:15] LABS: Microscopic, Urine URINE MICROSCOPIC (MICROSCOPIC)
[2018-05-21 06:16] LABS: Appearance,Urine SL CLOUDY (Clear); Bilirubin,Urine Negative (Negative); Blood, Urine 3+ (Negative); Color,Urine YELLOW (Yellow); Glucose,Urine (UA) Negative (Negative); Ketones,Urine Negative (Negative); Leukocyte Esterase,Urine 2+ (Negative); Nitrate,Urine Negative (Negative); Protein,Urine TRACE (Negative); Urobilinogen,Urine 0.2 EU/dl (0.2)
[2018-05-21 06:18] LABS: RBC,Urine 20-50 #/hpf (0-3); WBC,Urine 50-100 #/hpf (0-3)
== END 2018-05-21 07:25 | disposition home or self-care (01) ==
LOC: OBOUT 05:58 → OB 05:59
PROVIDERS: PCP Nurse Practitioner Family; Referring Provider Nurse Practitioner Obstetrics & Gynecology; Visit Provider Obstetrics & Gynecology
DX: O26.93 Pregnancy related conditions, unspecified, third trimester (principal); Z3A.33 33 weeks gestation of pregnancy; M54.5 Low back pain; R11.2 Nausea with vomiting, unspecified
CPT/HCPCS: 59025; 81001; 87086

== ENCOUNTER → 2018-05-25 13:23 | Outpatient (CLI) | payer MEDICAID, SELFPAY ==
--- NOTE | 2018-05-25 13:52 | US_ITS ---
US kidney retroperitoneal comp HISTORY: ITS.REASON: RT FLANK PAIN, R/O STONES ORDERING PHYSICIAN: Kleber Boyer MD PATIENT AGE: 23 years Comparison: None FINDINGS: RIGHT KIDNEY:There is moderate right hydronephrosis. The ureters not demonstrated. 13.8cm by 6.41cm by 10.69cm LEFT KIDNEY:Mild/moderate left hydronephrosis 12.73 cm by 6.46cm by 6.52cm OTHER FINDINGS: No other pertinent findings IMPRESSION: Bilateral hydronephrosis right more extensive than left
== END ==
PROVIDERS: Family Provider Nurse Practitioner Family; PCP Nurse Practitioner Family; Visit Provider Nurse Practitioner Obstetrics & Gynecology
DX: R10.9 Unspecified abdominal pain (principal)
CPT/HCPCS: 76770

== ENCOUNTER → 2018-05-29 19:18 | Outpatient (REF) | payer MEDICAID, SELFPAY | LOC: LAB 19:18 | PROVIDERS: Visit Provider Obstetrics & Gynecology | DX: Z34.90 Encounter for supervision of normal pregnancy, unspecified, unspecified trimester (principal) | CPT/HCPCS: 86403 ==

== ENCOUNTER 2018-05-31 22:47 | Outpatient (CLI) | payer MEDICAID, SELFPAY ==
[2018-05-31 23:01] VITALS: BMI 23.1
[2018-05-31 23:13] VITALS: BP 144/77; PULSE 111; RESP 18; TEMP 36.6; O2SAT 98; BMI 23.1
[2018-05-31 23:14] LABS: Microscopic, Urine URINE MICROSCOPIC (MICROSCOPIC)
[2018-05-31 23:17] LABS: Appearance,Urine CLEAR (Clear); Bilirubin,Urine Negative (Negative); Blood, Urine 1+ (Negative); Color,Urine YELLOW (Yellow); Glucose,Urine (UA) Negative (Negative); Ketones,Urine Negative (Negative); Leukocyte Esterase,Urine 3+ (Negative); Nitrate,Urine Negative (Negative); Protein,Urine TRACE (Negative); Specific Gravity, Urine 1.015 (1.005-1.030)
[2018-05-31 23:26] LABS: Bacteria,Urine 1+ /lpf; WBC,Urine 50-100 #/hpf (0-3)
== END 2018-06-01 02:02 | disposition home or self-care (01) ==
LOC: OBOUT 22:50 → OB 22:51
PROVIDERS: PCP Nurse Practitioner Obstetrics & Gynecology; Visit Provider Obstetrics & Gynecology
DX: O26.893 Other specified pregnancy related conditions, third trimester (principal); Z3A.35 35 weeks gestation of pregnancy; R10.9 Unspecified abdominal pain
CPT/HCPCS: 59025; 81001; 87086; 96360; 96367; 96372

== ENCOUNTER 2018-06-20 02:48 | Inpatient (IN) ==
[2018-06-20 05:11] LABS: Basophils # 0.1 K/mm3 (0-0.2); Basophils % 0.4 % (0.1-2.0); Eosinophils # 0.2 K/mm3 (0.0-0.4); Eosinophils % 1.3 % (0.1-12.0); Hematocrit 29.3 % (37.0-47.0); Hemoglobin 9.8 g/dL (12.2-16.2); Lymphocytes # 2.8 K/mm3 (0.7-4.5); Lymphocytes % 22.7 K/mm3 (10-50); Mean Corpuscular HGB Conc 33.3 g/dL (31.8-35.4); Mean Corpuscular Hemoglobin 28.7 pg (27.0-31.2); Mean Corpuscular Volume 86.1 fl (81-99); Mean Platelet Volume 9.3 fl (7.4-10.4); Monocytes # 0.5 K/mm3 (0.1-1.0); Monocytes % 3.8 % (1.7-9.3); Neutrophils # 8.8 K/mm3 (1.8-7.8); Neutrophils % 71.9 % (37.0-80.0); Platelet Count 184 K/mm3 (142-424); Red Cell Distribution Width 15.8 % (11.5-17.5); White Blood Count 12.3 K/mm3 (4.8-10.8)
--- NOTE | 2018-06-20 09:04 | History & Physical Report ---
OB - H&P: HPI Antepartum - History of Present Illness Chief complaint: Oligohydramnios, term History of present illness: She is a 23-year-old 1 para 0 at 38+ weeks gestational age. She has been followed for the last couple of weeks with decreased movement as well as decreased fluid. Her ultrasound yesterday showed that she had an amniotic fluid index of 6. As per that we have elected to deliver her at term. She has had steroids in the past for labor. - History of Present Criteria for establishing EDC:: LMP confirmed by 1st trimester US care: good care Ultrasounds: normal 1st trimester US, normal mid trimester US Obstetrical complications: other (Oligohydramnios) Medical complications: none [facility] History I have reviewed the patient's past medical history: Yes Medical History: Denies:: Cancer, Diabetes Mellitus Type 1, Diabetes Mellitus Type 2, MRSA Other Surgeries: No: Amputation: No Fractures: No - *Social History Smoking Status: Never smoker Alcohol Intake: never Substance Use Type: denies use Occupational Status: employed Housing: house Household Members: spouse *Family Hx:: No significant family history Para: 0 Review of Systems - Review of Systems Review of systems:: pertinent systems reviewed and negative unless documented below Meds Home Medications Medication Instructions Recorded Confirmed Type Ferrous Sulfate 325 mg PO DAILY 03/31/18 06/20/18 History raNITIdine HCl [Zantac] 150 mg PO NEEDED PRN 06/20/18 06/20/18 History Allergies Allergy/AdvReac Type Severity Reaction Status Date / Time No Known Allergies Allergy Verified 06/14/18 08:43 OB - H&P: Exam - Physical Exam Vital signs: Temp Pulse Resp BP Pulse Ox 98.1 F 76 18 129/81 99 06/20/18 07:45 06/20/18 07:45 06/20/18 07:45 06/20/18 07:45 06/20/18 07:45 - Constitutional no acute distress - Routine HEENT Exam Head: Present: normocephalic - Routine Neck Exam Present: supple - Routine Respiratory Exam Comments: She has no respiratory distress and is breathing well. - Routine Abdominal Exam Present: soft Comments: Gravid - Routine Exam Comments: Her cervix is 4 cm 75% Station -3. I ruptured her membranes and there was clear fluid. OB - Results - Labs Labs: Short CBC 06/20/18 Range/Units 05:00 WBC 12.3 H (4.8-10.8) K/mm3 Hgb 9.8 L (12.2-16.2) g/dL Hct 29.3 L (37.0-47.0) % Plt Count 184 (142-424) K/mm3 OB - A/P Antepartum (1) Oligohydramnios in [place]ley in third trimester Current visit: Yes Status: Acute (2) Rh negative status during Problem details: Rhogam 03/31 Current visit: No Status: Acute (3) Rubella non-immune status, antepartum Current visit: No Status: Chronic - Additional Plan Planning to breastfeed?: Yes Plan: induction Additional Information:: She has oligohydramnios in the third trimester at term. Also has had decreased movement over the last week. As result of that we will go ahead and deliver her.
--- NOTE | 2018-06-20 10:36 | Progress Note ---
[facility] Anesthesia Checklist - Patient Identification Patient Identification: Arm Band, Verbal (Name & ) - Structural Data Admitted From: Home Planned Operative Procedure/s: Labor Epidural Consent for Planned Operative Procedure(s) Verified: Yes Verified Documents: Surgical Consent, History and Physical - Additional verifications Patient : Yes Anesthesia Reactions: No - Airway Assessment C-Spine Mobility Assessed: Yes TMJ Mobility Assessed: Yes Dentition: Good Dentition - Neurological Assessment Level of Consciousness: Awake Hx Seizures: No Numbness or tingling in extremities: No - Anesthesia Plan Anesthesia Risk discussed: Yes Anesthesia Plan: Verified ASA Class: II Anesthesia Type: Epidural [facility] Anesthesia HX I have reviewed the patient's past medical history: Yes Medical History: Denies:: Cancer, Diabetes Mellitus Type 1, Diabetes Mellitus Type 2, MRSA Other Surgeries: No: Amputation: No Fractures: No *Family Hx:: No significant family history
[2018-06-20 11:03] LABS: Microscopic, Urine URINE MICROSCOPIC (MICROSCOPIC)
[2018-06-20 11:05] LABS: Appearance,Urine CLEAR (Clear); Bilirubin,Urine Negative (Negative); Blood, Urine Negative (Negative); Color,Urine YELLOW (Yellow); Glucose,Urine (UA) Negative (Negative); Ketones,Urine Negative (Negative); Leukocyte Esterase,Urine Negative (Negative); Protein,Urine Negative (Negative); Urobilinogen,Urine 0.2 EU/dl (0.2)
[2018-06-20 11:14] LABS: Bacteria,Urine Trace /lpf; Squamous Epithelial Cell,Urine Occasional #/hpf (0-5)
--- NOTE | 2018-06-20 11:26 | Progress Note ---
Labor Note - Subjective: Date: 06/20/18 Time: 11:25 irregular contractions - Objective: NST:: Reactive Contractions:: every 2-3 minutes Cervical Dilation:: 5-6 Effacement:: 90% Station: -1 Membranes: articially ruptured - Fetus: Monitoring?: Yes monitoring type:: External - Assessment: Labor progressing?: Yes Cephalopelvic disproportion?: No Patient Problems: All Active Problems Low back pain during in third trimester (Acute) Oligohydramnios in bradley in third trimester (Acute) UTI (urinary tract infection) (Acute) Round ligament pain (Acute) Rubella non-immune status, antepartum (Chronic) Rh negative status during (Acute) labor in third trimester without delivery (Acute) (Acute) - Plan: Anesthesia for epidural?: Yes Continue to labor down?: Yes Plan for ?: No Continue to monitor?: Yes Start pushing?: No
--- NOTE | 2018-06-20 13:39 | Progress Note ---
Labor Note - Subjective: Date: 06/20/18 Time: 13:39 regular contraction - Objective: NST:: Reactive Contractions:: every 2-3 minutes Cervical Dilation:: 9-10 Effacement:: 90% Station: 0 Membranes: articially ruptured - Fetus: Monitoring?: Yes monitoring type:: External - Assessment: Labor progressing?: Yes Cephalopelvic disproportion?: No Patient Problems: All Active Problems Low back pain during in third trimester (Acute) Oligohydramnios in bradley in third trimester (Acute) UTI (urinary tract infection) (Acute) Round ligament pain (Acute) Rubella non-immune status, antepartum (Chronic) Rh negative status during (Acute) labor in third trimester without delivery (Acute) (Acute) - Plan: Anesthesia for epidural?: Yes Continue to labor down?: Yes Plan for ?: No Continue to monitor?: Yes Start pushing?: No
--- NOTE | 2018-06-20 16:05 | Procedure Note ---
- Delivery Note Delivery Date:: 06/20/18 Delivery Time:: 15:42 Anesthesia Type: Epidural Was labor medically induced?: Yes Induction method: per pitocin protocol Gestational age (weeks): 38 delivered prior to 39 weeks?: Yes Justification for early elective delivery:: Oligohydraminos Infant Gender: Female at 1 minute: 8 at 5 minutes: 9 AF:: Clear fluid LAC or MLE?: LAC Delivery Procedure:: She is a 23-year-old 1 para 0 who was 38+ weeks gestational age. She was seen in my office and had oligohydramnios. Since she was 38+ weeks we elected to induce her labor. She was started on IV oxytocin and had her membranes ruptured. Under labor epidural she progressed to full dilation and delivered with the assistance of a vacuum liveborn female child at 3:42 PM in the afternoon of June 20, 2018. She was having some difficulty pushing and I elected to place a vacuum in the direct OA position. I pulled 3 gentle times and it popped off twice but I was able to pull the head beyond the perineum. She was unable to push the baby out on her own. On deliver the head the anterior shoulder delivered followed by the rest of the 's body atraumatically. The oropharynx and nasopharynx were bulb suctioned and the baby cried spontaneously. I allowed the cord to continue to pulsate for approximately 1 minute and then doubly clamped the cord. Cord was cut and the baby was placed on the mother's abdomen for further care. Nurses assigned Apgars of 8 at 1 minute and 9 at 5 minutes. She then received IV oxytocin and using gentle traction on the cord and countertraction the fundus I was able to easily deliver the placenta intact. He had a normal three-vessel cord. She had a second-degree perineal laceration that was repaired in the usual fashion with 3-0 Vicryl suture to the superficial tissues and 2-0 Vicryl suture to the deep tissues. Estimated blood loss was approximately 400 cc. Laceration:: vaginal Placental Delivery Description: Spontaneous
[2018-06-21 06:56] LABS: Hematocrit 25.9 % (37.0-47.0); Hemoglobin 8.9 g/dL (12.2-16.2)
--- NOTE | 2018-06-21 07:28 | Progress Note ---
Internal Medicine - PN: Subj *Date: 06/21/18 *Time: 07:28 Interval history: She is doing well this morning. She is eating and drinking and ambulating. She is breast-feeding. Her lochia is normal. Exam Vital signs and Labs for Last 24 Hours: Temp Pulse Resp BP Pulse Ox 98.1 F 76 18 129/81 99 06/20/18 07:45 06/20/18 07:45 06/20/18 07:45 06/20/18 07:45 06/20/18 07:45 Laboratory Results - last 24 hr 06/20/18 05:00: Blood Type A Negative, Antibody Screen Negative 06/20/18 10:05: Urine Color Yellow, Urine Appearance Clear, Urine pH 8.0, Ur Specific [place] 1.010, Urine Protein Negative, Urine Glucose (UA) Negative, Urine Ketones Negative, Urine Blood Negative, Urine Nitrate Negative, Urine Bilirubin Negative, Urine Urobilinogen 0.2, Ur Leukocyte Esterase Negative, Urine RBC None, Urine WBC None, Ur Squamous Epith Cells Occasional, Urine Bacteria Trace 06/20/18 15:55: Cord ABG pH 7.34 L 06/21/18 06:50: Hgb 8.9 L, Hct 25.9 L I & O for Last 24 hours: Intake & Output 06/18/18 06/19/18 06/20/18 06/21/18 11:59 11:59 11:59 11:59 Weight 144 lb - Constitutional no acute distress Assessment and Plan (1) Oligohydramnios in bradley in third trimester Current visit: Yes Status: Acute Category: Medical Code(s): O41.03X0 - Oligohydramnios, third trimester, not applicable or unspecified (2) Rh negative status during Problem details: Rhogam 03/31 Current visit: No Status: Acute Category: Medical Code(s): O09.899 - Supervision of other high risk pregnancies, unspecified trimester; Z67.91 - Unspecified blood type, Rh negative (3) Rubella non-immune status, antepartum Current visit: No Status: Chronic Category: Medical - Assessment and plan all Dx Assessment and Plan for all problems:: She continues to do well and we will plan to send her home tomorrow.
[2018-06-21 23:40] VITALS: BP 128/82
--- NOTE | 2018-06-22 08:09 | Discharge Summary ---
General - General Admission date:: 06/20/18 Discharge date: 06/22/18 HPI HPI: She is a 23-year-old 1 now para 1 who is 38+ weeks gestational age. She was seen in my office and had mild oligohydramnios. As result of that we elected to induce her labor at term. Hospital Course Hospital Course: She was started on IV oxytocin had her membranes ruptured and under labor epidural progressed to full dilation. She delivered spontaneously a liveborn female child at 3:42 PM in the afternoon of June 20, 2018. The baby weighed 6 lbs. 9 oz. and was 19 inches long. She had Apgars of 8 at 1 minute and 9 at 5 minutes. She has done well and has remained afebrile throughout her hospitalization. She has a Rh- blood and was rubella nonimmune. The baby was Rh- so she did not receive RhoGam. She will receive MMR prior to discharge. She will be discharged home to follow-up with me in approximately 2 weeks time. She was given the usual instructions with respect to limiting her activity, driving and sexual activity. She will continue with her vitamins and iron. She is taking [id number] analgesics. Objective Vital signs: Temp Pulse Resp BP Pulse Ox 98.2 F 78 18 128/82 99 06/20/18 22:00 06/20/18 22:00 06/20/18 22:00 06/20/18 22:00 06/20/18 07:45 no acute distress DS: Diagnosis - Discharge Diagnosis (1) Oligohydramnios in bradley in third trimester Status: Acute (2) Rh negative status during Status: Acute Problem details: Rhogam 5/4 (3) Rubella non-immune status, antepartum Status: Chronic Discharge Plan - Patient Discharge Instructions ACTIVITY: No heavy lifting DIET: continue same diet - Follow up Plan Disposition: Home, Self-Nursing Home Medications: Home Medications Medication Instructions Recorded Confirmed Type Ferrous Sulfate 325 mg PO DAILY 03/31/18 06/20/18 History raNITIdine HCl [Zantac] 150 mg PO DAILYP PRN 06/20/18 06/20/18 History Prescriptions/Medication Reconciliation: Continue vit no.95-ferrous fumarate 28 mg-folic acid 800 mcg tablet 1 tab PO DAILY #30 tab Ferrous Sulfate 325 mg PO DAILY raNITIdine HCl [Zantac] 150 mg PO DAILYP PRN PRN Reason: Heartburn
== END 2018-06-22 10:35 | disposition home or self-care (01) ==
LOC: OB 04:37
PROVIDERS: ADMIT Nurse Practitioner Obstetrics & Gynecology; ATTEND Nurse Practitioner Obstetrics & Gynecology

== ENCOUNTER → 2020-05-02 13:18 | Outpatient (CLI) | payer BC, SELFPAY ==
--- NOTE | 2020-05-02 13:18 | US_ITS ---
PROCEDURE: US OB <= 14 WEEKS FETUS CLINICAL INDICATION: for dates Early Ob for dates, irregular periods COMPARISON: OBBIO US OB biophysical profile from 05/17/2018 FINDINGS: An intrauterine gestational sac is present with a pole with a crown-rump length of 4.58cm correlating to gestational age of 11weeks 3days. heart tones are present with an FHR of 160bpm. Yolk sac is noted. The amnion and chorion have not yet fused. The adnexa are unremarkable. IMPRESSION: Live IUP at 11 weeks 3 days. Estimated due date by Ultrasound is 11/18/2020 Dictated by: Larry Duncan MD 05/02/2020 17:11 Electronically signed by Larry Duncan MD in [facility] 05/02/2020 17:11
== END ==
PROVIDERS: PCP Nurse Practitioner Family; Visit Provider Nurse Practitioner Obstetrics & Gynecology
DX: Z34.90 Encounter for supervision of normal pregnancy, unspecified, unspecified trimester (principal)
CPT/HCPCS: 76801

== ENCOUNTER 2020-09-03 18:20 | Emergency (ER) | payer BC, SELFPAY ==
[2020-09-03 18:31] VITALS: BP 130/77; PULSE 97; RESP 20; TEMP 36.6; O2SAT 98; BMI 23.8
--- NOTE | 2020-09-03 18:32 | XR_ITS ---
PROCEDURE: XR ANKLE LT MIN 3V CLINICAL INDICATION: FALL Posttraumatic pain COMPARISON: No exams were available for comparison FINDINGS: No fracture or dislocation. No lytic or blastic change. There is normal mineralization. The joint spaces are well-preserved. No significant degenerative/arthritic changes. No erosive changes evident. Other findings:None. IMPRESSION: No acute findings. Dictated by: Larry Duncan MD 09/04/2020 06:07 Larry Duncan MD in [facility] 09/04/2020 06:07
--- NOTE | 2020-09-03 18:32 | XR_ITS ---
PROCEDURE: XR FOOT LT MIN 3V CLINICAL INDICATION: FALL Left foot and ankle pain following injury COMPARISON: No exams were available for comparison FINDINGS: No fracture or dislocation. No lytic or blastic change. There is normal mineralization. The joint spaces are well-preserved. No significant degenerative/arthritic changes. No erosive changes evident. Other findings:None. IMPRESSION: No acute findings. Dictated by: Larry Duncan MD 09/04/2020 06:05 Larry Duncan MD in [facility] 09/04/2020 06:05
--- NOTE | 2020-09-03 18:42 | HMH.EDUTC ---
[facility] Disposition Clinical Impression: Foot sprain Qualifiers: Encounter type: initial encounter Laterality: left Qualified Code(s): S93.602A - Unspecified sprain of left foot, initial encounter Ankle sprain Qualifiers: Encounter type: initial encounter Involved ligament of ankle: other ligament Laterality: left Qualified Code(s): S93.492A - Sprain of other ligament of left ankle, initial encounter Disposition: Home, Self-Care Condition on Discharge: Good Instructions: How To Perform RICE (Rest, Ice, Compress, Elevate), How to Use Crutches Additional Instructions: *weight bearing as tolerated *RICE, Rest the extremity, Ice 15-20 minutes 3-4 times daily, Compress- wear the steven wrap as discussed as much as possible to help reduce swelling and pain, Elevate the extremity when at rest *Steven wrap is for support and help control swelling, use it except in the shower. Be sure that is not to tight but not to loose either *Elevate when resting *Tylenol For pain Call back later this evening to see if Radiologist read your xray and the result Return if needed Referrals: Kiana Singleton [Primary Care Provider] - As needed Time of Disposition: 19:12 Medical Decision Making - Kai Inquiry Pt receiving controlled substance: No Kai was queried for this patient: No Vital Signs: 09/03/20 18:31 Temperature 97.8 F Temperature Source Oral Pulse Rate [Radial] 97 H Respiratory Rate 20 Blood Pressure [Right Arm] 130/77 Blood Pressure Mean [Right Arm] 94 Blood Pressure Source [Right Arm] Automatic Cuff Blood Pressure Position [Right Arm] Sitting 02 Sat by Pulse Oximetry 98 Oxygen Delivery Method Room Air Orders (Tests/Meds): ORDERS Category Date Time Status XR ankle LT min 3V Stat Exams 09/03/20 18:32 Ordered XR foot LT min 3V Stat Exams 09/03/20 18:32 Ordered - Radiology Data #1 Image(s): Foot/Toes Image Reviewed: Yes I reviewed the patient's radiology image Preliminary Findings: No Fracture Seen #2 Image(s): Ankle Image Reviewed: Yes I reviewed the patient's radiology image Preliminary Findings: No Fracture Seen [facility] HPI - General Stated complaint: 29 WK pREG ao 1007 1000 FELL INJURED L fOOT Time Seen by Provider: 09/03/20 18:42 Mode of Arrival: Wheelchair Source of Information: Patient Limitations: No Limitations Description of Symptoms (Recalled from Triage Doc. by RN): fell going out of front door. left foot and ankle pain. 29 weeks HEENT Symptoms (Recalled from RN notes): No Resp Symptoms (Recalled from RN notes): No Skin Symptoms (Recalled from RN notes): No MS Symptoms (Recalled from RN notes): Yes Functional Status (Recalled from RN notes): wnl - History of Present Illness Provider Complaint: Patient is 29 weeks OB and she tripped going out the door this morning and twisted her left foot and ankle trying to protect her belly states that ever since she has been having pain in the top of her foot when she tries to walk on it Denies any other injury denies abdominal pain - Related Data Previous Rx's Medication Instructions Recorded Promethazine HCl [Phenergan 25mg 25 mg PO Q6HP PRN #10 tab 07/28/19 tab] promethazine 12.5 mg tablet 12.5 mg PO Q4-6H PRN #30 tab 03/17/20 promethazine 12.5 mg rectal 12.5 mg WA Q6H PRN #12 each 04/18/20 suppository Allergies Allergy/AdvReac Type Severity Reaction Status Date / Time No Known Allergies Allergy Verified 04/18/20 09:13 - Worker's Comp Is this a Worker's Comp case?: No [facility] History - Hepatitis A Screen Drug use history?: No High risk sexual behaviors?: No History of sexually transmitted infection?: No Currently employed?: No Childcare worker?: No Do you have indoor plumbing?: Yes Do you have electricity?: Yes Attestation statement:: This patient has been screened for Hepatitis A risk factors. I have reviewed the patient's past medical history: Yes Medical History: Denies:: Cancer, Diabetes M
[2020-09-03 19:20] VITALS: BP 130/77; PULSE 91; RESP 12; TEMP 36.7; O2SAT 100
== END 2020-09-03 19:20 | disposition home or self-care (01) ==
PROVIDERS: Emergency Provider Nurse Practitioner; PCP Nurse Practitioner Family
DX: S93.602A Unspecified sprain of left foot, initial encounter (principal); S93.492A Sprain of other ligament of left ankle, initial encounter; W01.0XXA Fall on same level from slipping, tripping and stumbling without subsequent striking against object, initial encounter; Y92.019 Unspecified place in single-family (private) house as the place of occurrence of the external cause; Z3A.29 29 weeks gestation of pregnancy
CPT/HCPCS: 73610; 73630; 99201

== ENCOUNTER → 2022-11-30 22:01 | Outpatient (CLI) | payer BC, SELFPAY ==
[2022-12-03 00:06] LABS: Neisseria gonorrhoeae, NAA Negative (Negative)
== END ==
PROVIDERS: Visit Provider Nurse Practitioner Obstetrics & Gynecology
DX: Z72.51 High risk heterosexual behavior (principal)
CPT/HCPCS: 87491; 87591

== ENCOUNTER 2023-11-01 14:04 | Emergency (ER) | payer BC, SELFPAY ==
[2023-11-01 14:05] VITALS: BP 124/89; PULSE 99; RESP 18; TEMP 36.9; O2SAT 98; BMI 23.6
--- NOTE | 2023-11-01 14:17 | US_ITS ---
PROCEDURE INFORMATION: Exam: US , Transvaginal and US Duplex Artery and Vein, Ovaries, Complete Exam date and time: 11/01/2023 2:47 PM Age: 28 years old Clinical indication: complicated by abdominal or pelvic pain; Lower; First trimester (<14 weeks 0 days); Gestational age or lmp: 2w5d; Prior surgery; Surgery date: 1-6 months; Patient HX: PT states pos home preg test-- S/P btl-- labs pending; Additional info: Pos preg test sp tubal LABS AND CLINICAL REPORTS: Last menstrual period start date: 10/12/2023 Gestational age (Established): 2 w 6 d Estimated due date (Established): 07/18/2024 TECHNIQUE: Imaging protocol: Real-time transvaginal obstetrical ultrasound of the maternal pelvis and a first trimester with image documentation. Transvaginal imaging was used for better evaluation of the fetus, adnexa, and/or cervix. Real-time duplex ultrasound scan of the arterial and venous flow of the ovaries with B-mode, color Doppler flow and spectral waveform analysis, Complete Duplex. Duplex exam was performed to evaluate for torsion and other vascular conditions. COMPARISON: US OB <= 14 WEEKS FETUS 05/02/2020 1:05 PM FINDINGS: GESTATION: Gestation: No evidence of intrauterine gestation. heart rate: N/A Placenta: N/A Amniotic fluid: N/A MATERNAL: Uterus: Uterus measures 8.01 cm x 4.82 cm x 3.84 cm. Uterus is normal in size and echotexture. Endometrial stripe is within normal limits for age, and has an appearance compatible with ovulatory phase of menstrual cycle. Color Doppler demonstrates no abnormal vascularity within the endometrial canal. Right ovary/adnexa: Right ovary measures 4.3 cm x 3 cm x 2.04 cm. Right ovarian volume is 13.78 mL. Right ovary is normal in size and echotexture and contains physiologic follicles. Color and spectral Doppler demonstrates normal ovarian arterial and venous blood flow. No evidence of right adnexal mass. Left ovary/adnexa: Left ovary measures 4.07 cm x 1.99 cm x 1.8 cm. Left ovarian volume is 7.63 mL. Left ovary is normal in size and echotexture and contains a physiologic follicles. Color and spectral Doppler demonstrates normal ovarian arterial and venous blood flow. No evidence of left adnexal mass. Intraperitoneal space: Trace amount of simple, anechoic free fluid in the pelvic cul-de-sac, likely physiologic. IMPRESSION: Normal pelvic ultrasound. No evidence of intrauterine gestation or ectopic .
[2023-11-01 14:20] LABS: Microscopic, Urine URINE MICROSCOPIC (MICROSCOPIC)
[2023-11-01 14:29] LABS: Color,Urine YELLOW (Yellow)
[2023-11-01 14:30] LABS: Appearance,Urine CLOUDY (Clear); Blood, Urine TRACE-I (Negative); Glucose,Urine (UA) Negative (Negative); Ketones,Urine Negative (Negative); Leukocyte Esterase,Urine TRACE (Negative); Nitrate,Urine Negative (Negative); Protein,Urine TRACE (Negative); Specific Gravity, Urine >= 1.030 (1.005-1.030)
[2023-11-01 14:39] LABS: Bilirubin,Urine 1+ (Negative)
[2023-11-01 14:40] LABS: Bacteria,Urine 1+ /lpf; RBC,Urine Occasional #/hpf (0-3)
--- NOTE | 2023-11-01 14:41 | PC.NURSE ---
Pt gone to RAD via wheelchair for u/s
[2023-11-01 14:46] LABS: Basophils % 0.3 % (0.1-2.0); Eosinophils # 0.1 K/mm3 (0.0-0.4); Eosinophils % 1.2 % (0.1-12.0); Hematocrit 38.7 % (37.0-47.0); Lymphocytes # 1.9 K/mm3 (0.7-4.5); Lymphocytes % 31.9 % (10-50); Mean Corpuscular HGB Conc 33.5 g/dL (31.8-35.4); Mean Corpuscular Hemoglobin 26.8 pg (27.0-31.2); Mean Corpuscular Volume 79.8 fl (81-99); Mean Platelet Volume 8.4 fl (7.4-10.4); Monocytes # 0.3 K/mm3 (0.1-1.0); Monocytes % 5.2 % (1.7-9.3); Neutrophils # 3.7 K/mm3 (1.8-7.8); Neutrophils % 61.5 % (37.0-80.0); Platelet Count 304 K/mm3 (142-424); Red Blood Count 4.85 M/mm3 (4.20-5.40); Red Cell Distribution Width 14.7 % (11.5-17.5)
[2023-11-01 14:57] LABS: Chloride 104 mmol/L (98-107); Potassium 3.3 mmoL/L (3.5-5.1); Sodium 139 mmol/L (136-145)
[2023-11-01 14:59] LABS: Alanine Aminotransferase 34 U/L (12-78); Aspartate Amino Transferase 38 U/L (14-36); Blood Urea Nitrogen 12 mg/dl (7-17); Creatinine Clearance Estimated 127 mL/min (50-200); Estimated Glomerular Filt Rate 101 ml/min (>60); GFR (African American) 122 ML/MIN (>60)
[2023-11-01 15:00] LABS: Albumin Level 4.8 g/dl (3.5-5.0); Albumin/Globulin Ratio 1.5 (1.1-1.8); Alkaline Phosphatase 87 U/L (38-126); Anion Gap 12.3 mEq/L (5-15); Bilirubin,Total 0.7 mg/dl (0.2-1.3); Carbon Dioxide 26 mmol/L (22.0-30.0); Globulin 3.3 g/dL (1.3-3.2); Glucose 123 mg/dl (74-100); Total Protein,Serum 8.1 g/dl (6.3-8.2)
--- NOTE | 2023-11-01 15:14 | HMH.EDGENADL ---
Discharge Plan Disposition Patient Disposition: Home, Self-Care Prescriptions Prescriptions: New cefdinir 300 mg capsule 300 mg PO BID 10 Days Qty: 20 0RF No Action sertraline 100 mg tablet 100 mg PO DAILY trazodone 150 mg tablet 150 mg PO HS Vraylar 1.5 mg capsule 1.5 mg PO DAILY azithromycin [Zithromax Z-Gustavo] 250 mg tablet 250 mg PO DAILY 6 Days Qty: 6 0RF Rx Instructions: start on day 2 of therapy Referrals Follow up/Referrals: Kiana Singleton [Primary Care Provider] - See instructions Activity Restrictions/Add. Instructions Additional Instructions/Restrictions: Your emergent evaluation today was largely unremarkable aside from a questionable urinary tract infection and some tenderness around your kidney we will presumptively treat this for pyelonephritis given the fact we do not have an alternative diagnosis. Please follow-up with your mixer and scaler or your primary care doctor if you are not improving return to the emergency part with any significant worsening symptoms. Clinical Impressions Clinical Impression: Pyelonephritis Instructions Patient Instructions: DI for Acute Abdominal Pain Discharge ED Provider: Alicia Parsons General Adult HPI <Alicia Parsons DO - Last Filed: 11/01/23 15:39> General Chief complaint: Abdominal Pain Stated complaint: right side pain and poss preg and bleeding Time Seen by Provider: 11/01/23 14:19 Mode of Arrival: Ambulatory Source of Information: Patient Limitations: No Limitations Description of Symptoms (Recalled from ER Triage Doc. 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 Patient reports that her surgery for tube removal was approximately 3 years ago. She notes that she does have a history of sponge kidney disease and has history of multiple kidney stones in the past, and the right lower quadrant pain does feel similar to prior kidney stones, however the nausea, vomiting, and positive test at home threw her off. She denies any other concerns, such as dysuria, polyuria, abnormal vaginal discharge, or other concerns. No concerns for sexually transmitted infection. She does note that she had some light vaginal spotting yesterday, but then it stopped, which is unusual for her. Her last period was approximately 3 weeks ago. Related Data Home Medications Medication Instructions Recorded Confirmed cariprazine 1.5 mg capsule 1.5 mg PO DAILY 11/30/22 11/30/22 (Vraylar) sertraline 100 mg tablet 100 mg PO DAILY 11/30/22 11/30/22 trazodone 150 mg tablet 150 mg PO HS 11/30/22 11/30/22 Previous Rx's Medication Instructions Recorded azithromycin 250 mg tablet 250 mg PO DAILY 6 days #6 tabs 11/30/22 (Zithromax Z-Gustavo) cefdinir 300 mg capsule 300 mg PO BID 10 days #20 caps 11/01/23 Allergies Allergy/AdvReac Type Severity Reaction Status Date / Time No Known Allergies Allergy Verified 11/30/22 09:02 [facility] <Alicia Parsons DO - Last Filed: 11/01/23 15:39> [facility] Disclaimer: The information contained in this section may have been updated after the patient was seen, as this information can be updated by other users. Surgical History Hx of cholecystectomy Hx of tubal ligation Social History Smoking Status: Never smoker alcohol intake: current substance use type: denies use current occupational status: unemployed Travel in the last 8 weeks: None household
[2023-11-01 15:18] LABS: HCG,Quantitative < 2 mIU/ml (0-5.42)
--- NOTE | 2023-11-01 15:21 | CT_ITS ---
FINAL REPORT CLINICAL HISTORY: RLQ pain, h/o stones COMPARISON: July 27, 2019 FINDINGS: Axial CT images of the abdomen and pelvis were obtained without intravenous contrast. Coronal and sagittal reformatted images were also obtained.This study was performed with techniques to keep radiation doses as low as reasonably achievable (ALARA). Individualized dose reduction techniques using automated exposure control or adjustment of mA and/or kV according to the patient''s size were employed. Abdomen:The lung bases are clear. Postoperative changes are seen from cholecystectomy. The liver, spleen and pancreas are unremarkable. There is no evidence of renal stone or hydronephrosis. No localized inflammatory process is identified. The appendix is unremarkable. Pelvis: Images of the pelvis reveal no evidence of ureteral dilation or ureteral stone. Probable cysts are noted in the right ovary. No localized inflammatory process is seen. There is no evidence of free fluid. IMPRESSION: No renal or ureteral stone, or hydronephrosis. Probable right ovarian cysts. Authenticated and ERN
[2023-11-01 17:37] VITALS: BP 124/72; PULSE 99; RESP 16; TEMP 36.9; O2SAT 100
== END 2023-11-01 17:37 | disposition home or self-care (01) ==
PROVIDERS: Emergency Provider Emergency Medicine; PCP Nurse Practitioner Family
DX: N12 Tubulo-interstitial nephritis, not specified as acute or chronic (principal); N93.9 Abnormal uterine and vaginal bleeding, unspecified; R10.31 Right lower quadrant pain
CPT/HCPCS: 74176; 76817; 80053; 81001; 84702; 85025; 99285

== ENCOUNTER 2023-12-07 14:04 | Emergency (ER) | payer BC, SELFPAY ==
[2023-12-07 14:45] VITALS: BP 121/80; PULSE 89; RESP 18; TEMP 36.9; O2SAT 98; BMI 23.2
--- NOTE | 2023-12-07 15:07 | EXP.UTC ---
Discharge Plan Disposition Patient Disposition: Home, Self-Care Condition: Good Prescriptions Prescriptions: No Action sertraline 100 mg tablet 100 mg PO DAILY trazodone 150 mg tablet 150 mg PO HS Referrals Follow up/Referrals: Provider,Referral, [Primary Care Provider] - See instructions Activity Restrictions/Add. Instructions Additional Instructions/Restrictions: GO home lay down and sleep off remainder of migraine headache Follow up with your Family Doctor if you continue to have migraine headaches If you need something else for your Headache you may take some Tylenol do not take any Ibuprofen for the next 8 hours Straight to ER if any life threatening symptoms Clinical Impressions Clinical Impression: Migraine Qualifiers: Migraine type: unspecified Status migrainosus presence: without status migrainosus Intractability: not intractable Qualified Code(s): G43.909 - Migraine, unspecified, not intractable, without status migrainosus Instructions Patient Instructions: Migraine -- Adult, DI for Migraine Discharge ED Provider: Brandie Lopes [facility] General Stated complaint: migraine Mode of Arrival: Ambulatory Source of Information: Patient Limitations: No Limitations Time Seen by Provider: 12/07/23 15:07 Description of Symptoms (Recalled from Triage Doc. by RN): Pt's symptoms are migraine, and left ear pain. HEENT Symptoms (Recalled from RN notes): Yes Resp Symptoms (Recalled from RN notes): No Skin Symptoms (Recalled from RN notes): No MS Symptoms (Recalled from RN notes): No Functional Status (Recalled from RN notes): n/a History of Present Illness Provider Complaint: Patient states that she has a hx of migraine headaches and she has been having on all day States that usually when these hit she comes in and gets a migraine coctail and it helps it States that also she has been having pain and pressure in her left ear wants to get it looked at too Related Data Home Medications Medication Instructions Recorded Confirmed sertraline 100 mg tablet 100 mg PO DAILY 11/30/22 12/07/23 trazodone 150 mg tablet 150 mg PO HS 11/30/22 12/07/23 Allergies Allergy/AdvReac Type Severity Reaction Status Date / Time No Known Allergies Allergy Verified 12/07/23 15:00 Worker's Comp Is this a Worker's Comp case?: No [facility] Disclaimer: The information contained in this section may have been updated after the patient was seen, as this information can be updated by other users. Surgical History Hx of cholecystectomy Hx of tubal ligation Social History Smoking Status: Never smoker alcohol intake: current substance use type: denies use current occupational status: unemployed Travel in the last 8 weeks: None household members: spouse housing: house current occupational exposures/hazards: No ROS Obtained: Yes All systems reviewed & no additional complaints except as documented and Yes Systems reviewed as appropriate & no additional complaints except as documented Constitutional Constitutional: Reports system reviewed and no additional complaints, except as documented, Reports as per HPI and Reports headache(s) Eyes Eyes: Reports system reviewed and no additional complaints, except as documented, Reports as per HPI, Denies blurry vision and Reports photophobia ENT Ears, Nose, Mouth, and Throat: Reports system reviewed and no additional complaints, except as documented, Reports as per HPI, Reports otalgia and Reports headache(s) Cardiovascular Cardiovascular: Reports system reviewed and no additional complaints, except as documented and Reports as per HPI Respiratory Respiratory: Reports system reviewed and no additional complaints, except as documented and Reports as per HPI Neurologic Neurologic: Reports headache(s) Physical Exam General General appearance: alert and in no apparent distress Eye Eye exam: Present normal appearance, PERRL and EOMI ENT ENT exam: Present mucous membranes moist Expanded ENT Exam TM/Canal exam: Left TM: bulging (clear fluid) Respiratory Respiratory exam: Present normal lung sounds bilaterally; Absent respiratory distress or wheezes Cardiovascular Cardiovascular exam: Present regular rate, normal rhythm and normal heart sounds Neurological Exam Neurological exam: Present alert, oriented X3 and normal gait Medical Decision Making Kai Inquiry Pt receiving controlled substance: No Kai was queried for this patient: No Vital Signs: 12/07/23 14:45 Temperature 98.5 F Temperature Source Oral Pulse Rate [Right Radial] 89 Respiratory Rate 18 Blood Pressure [Right Arm] 121/80 Blood Pressure Mean [Right Arm] 93 Blood Pressure Source [Right Arm] Automatic Cuff Blood Pressure Position [Right Arm] Sitting 02 Sat by Pulse Oximetry 98 Oxygen Delivery Method Room Air Medical Decision Narrative: Patient reports that she has had Toradol, benadryl and reglan in the past without complications or reactions Patient states that headache is starting to ease up ready to go home
[2023-12-07] MEDS: KETOROLAC 60MG/2ML VIAL 60 MG IM (15:34)
[2023-12-07] MEDS: METOCLOPRAMIDE 10MG TABLET 10 MG PO (15:34)
[2023-12-07] MEDS: diphenhydrAMINE 50MG/ML VIAL 25 MG IM (15:35)
[2023-12-07 15:40] VITALS: BP 120/80; PULSE 89; RESP 18; TEMP 36.9; O2SAT 98
== END 2023-12-07 15:30 | disposition home or self-care (01) ==
PROVIDERS: Emergency Provider Nurse Practitioner
DX: G43.909 Migraine, unspecified, not intractable, without status migrainosus (principal); H92.02 Otalgia, left ear
CPT/HCPCS: 96372; 99204; 99212; G0463

== ENCOUNTER 2024-03-27 09:22 | Emergency (ER) | payer BC, SELFPAY ==
[2024-03-27 09:30] VITALS: BP 121/80; PULSE 117; RESP 19; TEMP 36.6; O2SAT 100; BMI 22.6
--- NOTE | 2024-03-27 09:45 | ED_ITS ---
Discharge Plan Disposition Patient Disposition: Home, Self-Care Condition: Good Prescriptions Prescriptions: New phenazopyridine 200 mg Tablet 200 mg PO TID 2 Days Qty: 6 0RF cephalexin 500 mg capsule 500 mg PO QID Qty: 40 0RF promethazine 25 mg tablet 25 mg PO TID PRN (Reason: nausea and vomiting) Qty: 20 0RF No Action trazodone 150 mg tablet 150 mg PO HS valacyclovir 500 mg tablet 500 mg PO DAILY Patient Comments: Take 1 tablet every day by oral route. hydroxyzine HCl 25 mg tablet See Rx Instructions .ROUTE .COMPLEX Patient Comments: Take 1 tablet every 6 hours by oral route as needed, for panic attack. Rx Instructions: Take 1 tablet every 6 hours by oral route as needed, for panic attack. Junel Fe 24 1 mg-20 mcg (24)/75 mg (4) tablet 1 tab PO DAILY Vraylar 3 mg capsule 3 mg PO DAILY Patient Comments: TAKE ONE CAPSULE BY MOUTH EVERY DAY FOR mood Referrals Follow up/Referrals: Kiana Singleton [Primary Care Provider] - See instructions Activity Restrictions/Add. Instructions Additional Instructions/Restrictions: Drink plenty of fluids. Take tylenol or ibuprofen for pain or fever. Take the medications as directed. Follow up with your regular doctor. GO TO THE ER FOR ANY WORSENING SYMPTOMS The pyridium will make your urine turn orange, this is an expected side effect. It will stain your clothes if it comes into contact with them. We will culture the urine. That will tell what bacteria is causing your infection and which antibiotics will treat it best. Sometimes the first antibiotic we prescribe turns out to not work against different bacteria. So, make sure you follow up within 3 days if you are not getting better. Your white blood cell count was slightly elevated. If your UTI symptoms get any worse I want you to return and go to the ER. Clinical Impressions Clinical Impression: UTI (urinary tract infection), Migraine Instructions Patient Instructions: Urinary Tract Infection, Urine Culture, DI for Urinary Tract Infection (UTI) Discharge ED Provider: Pawan Mendez [facility] General Stated complaint: possible migraine, kidney pain Time Seen by Provider: 03/27/24 09:45 History of Present Illness Provider Complaint: She states that for the past 3 days she has had low back pain, dysuria, and urinary frequency. She has a history of medullary sponge kidney. She states that she gets frequent uti's. She has also had a headache since yesterday. She states that she has a history of migraine headache. She states that she has to come in at times to get migraine cocktail medications. Related Data Home Medications Medication Instructions Recorded Confirmed trazodone 150 mg tablet 150 mg PO HS 11/30/22 03/27/24 cariprazine 3 mg capsule (Vraylar) 3 mg PO DAILY 03/27/24 03/27/24 hydroxyzine HCl 25 mg tablet See Rx Instructions .Route .COMPLEX 03/27/24 03/27/24 norethindrone 1 mg-ethinyl 1 tab PO DAILY 03/27/24 03/27/24 estradiol 20 mcg ()-iron 75 mg () tablet () valacyclovir 500 mg tablet 500 mg PO DAILY 03/27/24 03/27/24 Previous Rx's Medication Instructions Recorded cephalexin 500 mg capsule 500 mg PO QID #40 caps 03/27/24 phenazopyridine 200 mg tablet 200 mg PO TID 2 days #6 tabs 03/27/24 promethazine 25 mg tablet 25 mg PO TID PRN nausea and 03/27/24 vomiting #20 tabs Allergies Allergy/AdvReac Type Severity Reaction Status Date / Time No Known Allergies Allergy Verified 03/27/24 09:54 [facility] Disclaimer: The information contained in this section may have been updated after the patient was seen, as this information can be updated by other users. Surgical History Hx of cholecystectomy Hx of tubal ligation Social History Smoking Status: Never smoker alcohol intake: current alcohol intake frequency: holidays/special occasions only substance use type: denies use current occupational status: unemployed Travel in the last 8 weeks: None household members: spouse housing: house current occupational exposures/hazards: No ROS Obtained: Yes All systems reviewed & no additional complaints except as documented Constitutional Constitutional: Reports system reviewed and no additional complaints, except as documented, Denies chills and Denies fever(s) Eyes Eyes: Denies blurry vision and Denies eye discharge ENT Ears, Nose, Mouth, and Throat: Denies dysphagia, Denies sore throat and Denies throat swelling Cardiovascular Cardiovascular: Denies chest pain and Denies dyspnea Respiratory Respiratory: Denies chest congestion, Denies cough and Denies dyspnea Gastrointestinal Gastrointestingal: Denies abdominal pain, constipation, diarrhea, dysphagia, nausea or vomiting Genitourinary Female Genitourinary: Reports as per HPI, Reports dysuria, Reports urinary frequency, Denies urinary incontinence, Reports urinary hesitancy and Reports urinary urgency Musculoskeletal Musculoskeletal: Denies arthralgias and Reports back pain Integumentary/Breasts Skin/Breast: Denies rash Neurologic Neurologic: Reports as per HPI and Denies paresthesias Allergic/Immunologic Allergic/Immunologic: Denies throat swelling Physical Exam General General appearance: alert and in no apparent distress Head Head exam: atraumatic, normocephalic and normal inspection Eye Eye exam: Present normal appearance, PERRL and EOMI ENT ENT exam: Present normal exam, normal oropharynx, mucous membranes moist, TM's normal bilaterally and normal external ear exam Neck Neck exam: Present normal inspection, full ROM and trachea midline; Absent meningismus or lymphadenopathy Chest Chest inspection: Present normal inspection and symmetric chest wall rise; Absent tenderness Respiratory Respiratory exam: Present normal lung sounds bilaterally; Absent respiratory distress Cardiovascular Cardiovascular exam: Present regular rate and normal rhythm; Absent JVD Abdominal Exam Abdominal exam: Present soft and normal bowel sounds; Absent distention, tenderness or guarding Extremities Exam Extremities exam: Present normal inspection, full ROM and normal capillary refill; Absent calf tenderness Back Exam Back exam: Present normal inspection; Absent tenderness Neurological Exam Neurological exam: Present alert, oriented X3, CN II-XII intact, normal gait and reflexes normal; Absent motor sensory deficit Expanded Neurological Exam Speech: Present fluid speech Cranial nerves: Normal: EOM function (II, III, IV, ), facial sensation (V), facial palsy (VII), gag reflex (IX), spinal accessory function (XI) and tongue deviation (XII) Cerebellar function: normal gait Motor strength - LUE: 5/5 Motor strength - RUE: 5/5 Motor strength - LLE: 5/5 Motor strength - RLE: 5/5 Sensory exam upper extremity: Normal: light touch and 2 point discrimination Sensory exam lower extremity: Normal: light touch and 2 point discrimination DTR: 2+: biceps (L), biceps (R), patellar (L), patellar (R), Achilles tendon (L) and Achilles tendon (R) Psychiatric Psychiatric exam: Present normal affect and normal mood Skin Skin exam: Present warm, dry, intact and normal color Lymphatic Lymphatic Findings: no adenopathy Medical Decision Making Medical Records Medical records reviewed: No I reviewed the patient's medical records. Kai Inquiry Pt receiving controlled substance: No Lab Data Lab results reviewed: Yes I reviewed the patient's lab results. 03/27/24 10:54 03/27/24 10:54
[2024-03-27 09:47] LABS: Apearance,Urine Cloudy (Clear); Color,Urine Dark Yellow (Yellow); Specific Gravity, Urine 1.025 (1.005-1.030)
[2024-03-27 09:48] LABS: Bilirubin,Urine Negative (Negative); Blood, Urine 3+ (Negative); Glucose,Urine (UA) Negative (Negative); Ketones,Urine Negative (Negative); Protein,Urine 1+ (Negative); UTC Leukocyte Esterase,Urine 3+ (Negative); UTC Nitrate,Urine Positive (Negative); Urobilinogen,Urine 1 EU/dl (0.2)
[2024-03-27] MEDS: 0.9 % SODIUM CHLORIDE 1000ML 1,000 ML 999 ML IV (10:39)
--- NOTE | 2024-03-27 11:00 | PC.NURSE ---
Sent blood to lab via tube system
[2024-03-27] MEDS: DEXAMETHASONE 4MG/ML 1ML VIAL 8 MG IV (11:03)
[2024-03-27] MEDS: KETOROLAC 60MG/2ML VIAL 30 MG IV (11:05)
[2024-03-27] MEDS: PROMETHAZINE HCL 25MG/ML 1ML VIAL 25 MG IM (11:05)
[2024-03-27 11:27] LABS: Chloride 105 mmol/L (98-107); Sodium 137 mmol/L (136-145)
[2024-03-27 11:28] LABS: Potassium 3.3 mmoL/L (3.5-5.1)
[2024-03-27 11:29] LABS: Basophils # 0.1 K/mm3 (0-0.2); Basophils % 0.4 % (0.1-2.0); Eosinophils % 0.2 % (0.1-12.0); Hematocrit 34.9 % (37.0-47.0); Hemoglobin 11.3 g/dL (12.2-16.2); Lymphocytes # 1.8 K/mm3 (0.7-4.5); Lymphocytes % 12.8 % (10-50); Mean Corpuscular HGB Conc 32.2 g/dL (31.8-35.4); Mean Corpuscular Volume 83.7 fl (81-99); Mean Platelet Volume 8.6 fl (7.4-10.4); Monocytes # 0.8 K/mm3 (0.1-1.0); Monocytes % 5.9 % (1.7-9.3); Neutrophils # 11.3 K/mm3 (1.8-7.8); Neutrophils % 80.8 % (37.0-80.0); Platelet Count 227 K/mm3 (142-424); Red Blood Count 4.17 M/mm3 (4.20-5.40); Red Cell Distribution Width 14.7 % (11.5-17.5); White Blood Count 13.9 K/mm3 (4.8-10.8)
[2024-03-27 11:30] LABS: Blood Urea Nitrogen 8 mg/dl (7-17); Creatinine Clearance Estimated 122 mL/min (50-200); Estimated Glomerular Filt Rate 101 ml/min (>60); GFR (African American) 122 ML/MIN (>60)
[2024-03-27 11:31] LABS: Anion Gap 9.3 mEq/L (5-15); Calcium 9.2 mg/dl (8.4-10.2); Carbon Dioxide 26 mmol/L (22.0-30.0); Glucose 102 mg/dl (74-100)
[2024-03-27] MEDS: LIDOCAINE 1% 5ML PF VIAL IM (12:05)
[2024-03-27] MEDS: cefTRIAXone 1GM VIAL 1 GM IM (12:05)
[2024-03-27] MEDS: POTASSIUM CHLORIDE 20MEQ TAB 20 MEQ PO (12:51)
[2024-03-27 12:55] VITALS: BP 121/80; PULSE 117; RESP 19; TEMP 36.6; O2SAT 100
--- NOTE | 2024-03-27 12:56 | PC.NURSE ---
Pt's grandmother was present to drive patient home.
== END 2024-03-27 12:55 | disposition home or self-care (01) ==
PROVIDERS: Emergency Provider Nurse Practitioner Family; PCP Nurse Practitioner Family
DX: N39.0 Urinary tract infection, site not specified (principal); B96.29 Other Escherichia coli [E. coli] as the cause of diseases classified elsewhere; G43.909 Migraine, unspecified, not intractable, without status migrainosus; M54.59 Other low back pain; Q61.5 Medullary cystic kidney
CPT/HCPCS: 80048; 81003; 85025; 87086; 96361; 96372; 96374; 96375; 99212; 99214; G0463; J0696

== ENCOUNTER 2024-09-24 08:37 | Emergency (ER) | payer BC, SELFPAY ==
[2024-09-24 09:10] VITALS: BP 148/75; PULSE 71; RESP 18; TEMP 36.8; O2SAT 100; BMI 21.7
--- NOTE | 2024-09-24 09:11 | ED_ITS ---
Discharge Plan Disposition Patient Disposition: Home, Self-Care Condition: Good Prescriptions Prescriptions: New promethazine 25 mg tablet 25 mg PO TID PRN (Reason: nausea and vomiting) Qty: 20 0RF nitrofurantoin monohyd/m-cryst [Macrobid] 100 mg Capsule 100 mg PO BID Qty: 10 0RF Rx Instructions: must administer with a meal/food No Action trazodone 150 mg tablet 150 mg PO HS valacyclovir 500 mg tablet 500 mg PO DAILY Patient Comments: Take 1 tablet every day by oral route. hydroxyzine HCl 25 mg tablet See Rx Instructions .ROUTE .COMPLEX Patient Comments: Take 1 tablet every 6 hours by oral route as needed, for panic attack. Rx Instructions: Take 1 tablet every 6 hours by oral route as needed, for panic attack. Junel Fe 24 1 mg-20 mcg (24)/75 mg (4) tablet 1 tab PO DAILY Vraylar 3 mg capsule 3 mg PO DAILY Patient Comments: TAKE ONE CAPSULE BY MOUTH EVERY DAY FOR mood phenazopyridine 200 mg Tablet 200 mg PO TID 2 Days Qty: 6 0RF cephalexin 500 mg capsule 500 mg PO QID Qty: 40 0RF promethazine 25 mg tablet 25 mg PO TID PRN (Reason: nausea and vomiting) Qty: 20 0RF Referrals Follow up/Referrals: Kiana Singleton [Primary Care Provider] - See instructions Activity Restrictions/Add. Instructions Additional Instructions/Restrictions: Drink plenty of fluids. Water or an electrolyte drink like pedialyte would be best. Take tylenol for pain or fever. Take the medications as directed. The promethazine will make you drowsy, so don't drive or operate heavy machinery after taking it. Follow up with your regular doctor. GO TO THE ER FOR ANY WORSENING SYMPTOMS Clinical Impressions Clinical Impression: Gastroenteritis, UTI (urinary tract infection) Instructions Patient Instructions: DI for Viral Gastroenteritis -- Adult, Promethazine Print Language Print Language: Kyrgyz Discharge ED Provider: Pawan Mendez [facility] [place] HPI General Stated complaint: abd pain under ribs Time Seen by Provider: 09/24/24 09:10 Related Data Home Medications ?Medication ?Instructions ?Recorded ?Confirmed trazodone 150 mg tablet 150 mg PO HS 11/30/22 03/27/24 cariprazine 3 mg capsule (Vraylar) 3 mg PO DAILY 03/27/24 03/27/24 hydroxyzine HCl 25 mg tablet See Rx Instructions .Route .COMPLEX 03/27/24 03/27/24 norethindrone 1 mg-ethinyl 1 tab PO DAILY 03/27/24 03/27/24 estradiol 20 mcg (24)-iron 75 mg (4) tablet () valacyclovir 500 mg tablet 500 mg PO DAILY 03/27/24 03/27/24 Previous Rx's ?Medication ?Instructions ?Recorded cephalexin 500 mg capsule 500 mg PO QID #40 caps 03/27/24 phenazopyridine 200 mg tablet 200 mg PO TID 2 days #6 tabs 03/27/24 promethazine 25 mg tablet 25 mg PO TID PRN nausea and 03/27/24 vomiting #20 tabs promethazine 25 mg tablet 25 mg PO TID PRN nausea and 09/24/24 vomiting #20 tabs nitrofurantoin 100 mg PO BID #10 caps 09/25/24 monohydrate/macrocrystals 100 mg capsule (Macrobid) Allergies Allergy/AdvReac Type Severity Reaction Status Date / Time No Known Allergies Allergy Verified 03/27/24 09:54 [facility] Disclaimer: The information contained in this section may have been updated after the patient was seen, as this information can be updated by other users. Surgical History Hx of cholecystectomy Hx of tubal ligation Social History Smoking Status: Never smoker alcohol intake: current alcohol intake frequency: holidays/special occasions only substance use type: denies use current occupational status: unemployed Travel in the last 8 weeks: None household members: spouse housing: house current occupational exposures/hazards: No ROS Obtained: Yes All systems reviewed & no additional complaints except as documented Constitutional Constitutional: Reports chills and Reports fever(s) Eyes Eyes: Denies eye discharge ENT Ears, Nose, Mouth, and Throat: Reports as per HPI Cardiovascular Cardiovascular: Denies chest pain Respiratory Respiratory: Denies chest congestion and Reports cough Gastrointestinal Gastrointestingal: Reports nausea; Denies abdominal pain, constipation, cramping, diarrhea or vomiting Musculoskeletal Musculoskeletal: Denies arthralgias Integumentary/Breasts Skin/Breast: Denies rash Neurologic Neurologic: Denies paresthesias Physical Exam General General appearance: alert and in no apparent distress Head Head exam: atraumatic and normocephalic Eye Eye exam: Present normal appearance, PERRL and EOMI ENT ENT exam: Present normal exam, normal oropharynx, mucous membranes moist, TM's normal bilaterally and normal external ear exam Neck Neck exam: Present normal inspection, full ROM and trachea midline; Absent tenderness, meningismus or lymphadenopathy Chest Chest inspection: Present normal inspection and symmetric chest wall rise; Absent tenderness, rash or abscess Respiratory Respiratory exam: Present normal lung sounds bilaterally; Absent respiratory distress, wheezes or stridor Cardiovascular Cardiovascular exam: Present regular rate and normal rhythm; Absent irregular rhythm, systolic murmur, diastolic murmur or JVD Abdominal Exam Abdominal exam: Present soft and hyperactive bowel sounds; Absent distention, tenderness, guarding, rebound, rigidity, psoas sign, obturator sign, heel tap sign, Abel's sign, Rovsing's sign or tenderness at McBurney's Point Extremities Exam Extremities exam: Present normal inspection and full ROM; Absent tenderness Back Exam Back exam: Present normal inspection and full ROM; Absent tenderness, CVA tenderness (R) or CVA tenderness (L) Neurological Exam Neurological exam: Present alert, oriented X3 and CN II-XII intact Psychiatric Psychiatric exam: Present normal affect and normal mood Skin Skin exam: Present warm, dry, intact and normal color Lymphatic Lymphatic Findings: no adenopathy Medical Decision Making Medical Records Medical records reviewed: No I reviewed the patient's medical records. Screening: Per USPSTF and CDC recommendations, given the prevalence of disease in our region, it is our hospital?s policy to screen for HIV and viral Hepatitis for all patients aged 18 and over and those with ongoing risk factors. Kai Inquiry Pt receiving controlled substance: No Lab Data Lab results reviewed: Yes I reviewed the patient's lab results. 09/24/24 09:40 09/24/24 09:40
[2024-09-24 09:26] LABS: Microscopic, Urine URINE MICROSCOPIC (MICROSCOPIC)
[2024-09-24 09:38] LABS: Bilirubin,Urine Negative (Negative); Blood, Urine Negative (Negative); Color,Urine YELLOW (Yellow); Glucose,Urine (UA) Negative (Negative); Ketones,Urine Negative (Negative); Leukocyte Esterase,Urine 2+ (Negative); Nitrate,Urine Negative (Negative); Protein,Urine Negative (Negative); Specific Gravity, Urine 1.025 (1.005-1.030); Urobilinogen,Urine 0.2 EU/dl (0.2)
[2024-09-24 09:39] LABS: Appearance,Urine Cloudy (Clear)
[2024-09-24 09:39] LABS: UTC Strep Screen (Rapid) Negative (Negative)
[2024-09-24 09:54] LABS: Basophils % 0.4 % (0.1-2.0); Eosinophils % 0.7 % (0.1-12.0); Hemoglobin 12.8 g/dL (12.2-16.2); Lymphocytes # 1.4 K/mm3 (0.7-4.5); Lymphocytes % 29.6 % (10-50); Mean Corpuscular HGB Conc 33.7 g/dL (31.8-35.4); Mean Corpuscular Hemoglobin 27.8 pg (27.0-31.2); Mean Corpuscular Volume 82.5 fl (81-99); Mean Platelet Volume 7.9 fl (7.4-10.4); Monocytes # 0.2 K/mm3 (0.1-1.0); Monocytes % 4.1 % (1.7-9.3); Neutrophils # 3.2 K/mm3 (1.8-7.8); Neutrophils % 65.3 % (37.0-80.0); Platelet Count 279 K/mm3 (142-424); Red Blood Count 4.61 M/mm3 (4.20-5.40); Red Cell Distribution Width 14.8 % (11.5-17.5); White Blood Count 4.8 K/mm3 (4.8-10.8)
[2024-09-24 10:12] LABS: Albumin Level 4.6 g/dl (3.5-5.0); Chloride 106 mmol/L (98-107); Sodium 139 mmol/L (136-145)
[2024-09-24 10:14] LABS: Amylase 84 U/L (30-110); Blood Urea Nitrogen 8 mg/dl (7-17); Creatinine Clearance Estimated 117 mL/min (50-200); Estimated Glomerular Filt Rate 100 ml/min (>60); GFR (African American) 121 ML/MIN (>60)
[2024-09-24 10:15] LABS: Alanine Aminotransferase 17 U/L (12-78); Albumin/Globulin Ratio 1.4 (1.1-1.8); Alkaline Phosphatase 63 U/L (38-126); Aspartate Amino Transferase 26 U/L (14-36); Bilirubin,Total 0.5 mg/dl (0.2-1.3); Calcium 9.5 mg/dl (8.4-10.2); Carbon Dioxide 22 mmol/L (22.0-30.0); Globulin 3.4 g/dL (1.3-3.2); Glucose 101 mg/dl (74-100); Lipase 120 U/L (23-300)
[2024-09-24 10:29] VITALS: BP 148/75; PULSE 71; RESP 18; TEMP 36.8; O2SAT 100
[2024-09-24 10:46] LABS: Bacteria,Urine Trace /lpf; Squamous Epithelial Cell,Urine Occasional #/hpf (0-5)
--- NOTE | 2024-09-25 10:44 | PC.NURSE ---
Maday ZELAYA APRN SPOKE WITH PATIENT ABOUT URINE CULTURE AND ANTIBIOTICS SENT TO PHARMACY. PATIENT REQUESTING A GC/CHLAMYDIA TEST. THIS NURSE SPOKE WITH LAB WHO STATED A GC/CHLAMYDIA TEST CAN BE ADDED. PATIENT NOTIFIED AND ADVISED TEST RESULTS SHOULD BE AVAILABLE IN 3-5 DAYS
[2024-09-26 21:09] LABS: Neisseria gonorrhoeae, NAA Negative (Negative)
== END 2024-09-24 10:31 | disposition home or self-care (01) ==
PROVIDERS: Emergency Provider Nurse Practitioner Family; PCP Nurse Practitioner Family
DX: K92.9 Disease of digestive system, unspecified (principal)
CPT/HCPCS: 80053; 81001; 82150; 83690; 85025; 87086; 87088; 87186; 87491; 87591; 87880; 99213; G0381

== ENCOUNTER 2024-10-11 10:00 | Outpatient (RCR) | payer BC, SELFPAY | END 2024-11-15 09:38 | disposition home or self-care (01) | LOC: PT 10:00 | PROVIDERS: Visit Provider Nurse Practitioner Family | DX: M54.50 Low back pain, unspecified (principal) | CPT/HCPCS: 97014; 97110; 97140; 97163; G0283 ==